=== PATIENT | male | born 1970 | race Caucasian/White ===

== ENCOUNTER → 2020-01-07 15:17 | Outpatient (CLI) | payer OTHER, SELFPAY ==
[2020-01-08 09:00] LABS: COVID19 Sendout Not Detected (Not Detect)
== END ==
PROVIDERS: Family Provider Family Medicine; PCP Family Medicine; Visit Provider Physician Assistant
DX: Z01.812 Encounter for preprocedural laboratory examination (principal)
CPT/HCPCS: 87635

== ENCOUNTER 2020-01-10 08:54 | Inpatient (IN) | payer OTHER, SELFPAY ==
[2020-01-05 13:45] VITALS: BMI 37.3
[2020-01-10] VITALS (16 sets, daily range): BP systolic 119–166; BP diastolic 58–88; PULSE 75–106; RESP 9–19; TEMP 35.7–37.5; O2SAT 88–100; BMI 36.9
--- NOTE | 2020-01-10 | DI.RAD.S_ITS ---
PROCEDURE: XR LUMBAR SPINE 2-3V INDICATIONS: L4-5 L5-S1 TLIF TECHNIQUE: Two views of the lumbar spine were acquired. COMPARISON: None. FINDINGS: Bones: Normal alignment status post after posterior fusion procedure between L4 and S1, with interbody disc cage prosthesis devices at the 2 intervening levels. Soft tissues: Overlying bowel gas pattern is normal. No suspicious soft tissue calcifications. IMPRESSION: Normal alignment is stab wished after posterior fusion and interbody disc prosthesis placement, L4 through S1. Dictated by: Malachi Scales M.D. on 01/10/2020 at 16:08 Approved by: Malachi Scales M.D. on 01/10/2020 at 16:10
[2020-01-10] MEDS: LACTATED RINGERS 1,000 ML 42 ML IV ×3 (09:25→14:20)
--- NOTE | 2020-01-10 10:29 | PM.PREOP ---
Pre-operative Note COVID-19 COVID-19 status: Negative Result date/Date tested (Pos, Neg/Pending): 01/08/20 Interval Note History & Physical reviewed/Exam performed by Physician: Yes Changes to H&P: No
[2020-01-10] MEDS: CEFAZOLIN 2 GM/100 ML FROZ.PIGGY IV ×2 (10:59→18:41)
--- NOTE | 2020-01-10 11:34 | SUR.OPER ---
Prone on spine table, head in foam head support, padded chest and pelvic supports, gel pad at knees, lower legs supported by pillows; nipples, genitalia and toes free of pressure, arms secured on foam padded arm boards at <90 degrees abduction. Tape over blanket at thigh secured to table.
[2020-01-10] MEDS: BUPIVACAINE 0.25% W/ EPI 30 ML VIAL INJ (11:42)
[2020-01-10] MEDS: BUPIVACAINE LIPOSOME 266 MG/20 ML VIAL INJ (11:43)
--- NOTE | 2020-01-10 15:18 | P.OP_ITS ---
Operative Date/Time/Diagnoses Date of procedure: 01/10/20 Time of procedure: 11:36 Pre-op diagnosis: 1. L4-5, L5-S1 spondylolisthesis 2. L4-5, L5-S1 spinal stenosis with radiculopathy 3. L4-5, L5-S1 spondylosis with radiculopathy Post-op diagnosis: same Procedure & Clinicians Procedure: 1. L4-5, L5-S1 Postero-lateral and posterior interbody fusion 2. L4-5, L5-S1 interbody cage placement. 3. L4-5, L5-S1 decompressive laminectomy with bilateral facetecomies 4. L4-5, L5-S1 Posterior segmental instrumentation 5. [place] of bone marrow from iliac crest 6. Utilization of microsurgical technique and operating microscope Same procedure as scheduled: Yes Indications: Patient has been having chronic back pain and worsening lumbar radiculopathy. Patient failed multiple conservative management with worsening pain weakness and numbness in her lower extremity. Patient has been having difficulty performing activity of daily living. After discussing risks benefits of treatment options, patient elected proceed with surgery. Surgeon: Anabell Nix Shift Superintendent Caustic Cresylate: Yahir Zuniga Click Yes if Unassisted: No Anesthesia Type: General Operative Notes Closure Type: primary Specimen(s): none sent Prosthetic devices, grafts, tissues, transplants, or devices: Globus revolve screws, Rise cages Applied: catheter Estimated Blood Loss (mL): 600 Blood products transfused: none Procedure in detail: Patient was seen in the preoperative area. Risks and benefits of the surgery was discussed with the patient. Informed consent was obtained from the patient and placed in the chart. Surgical site was marked. Patient was taken to the operative room. General anesthesia was administered. Prophylactic antibiotic was given to the patient less than 30 min before the incision was made. Patient was placed into a prone position on the Wilder table. Patient's back was then prepped and draped in the sterile fashion. Time- out was performed at this time. Using AP and lateral C-arm imaging the interval between L4-S1 was identified and marked on patient's back. A 2 inch incision 2 in from midline was made on the left side first. The fascia was incised in line with skin incision. Globus MARS retractors was placed inside the incision and docked onto the L4 and L5 lamina. Using microsurgical technique and operating microscope, a L4 and L5 laminectomy and L4-5 L5-S1 facetectomy was performed using a Kerrison rongeur. Patient was found have severe neuroforaminal stenosis L4-5 L5-S1 level with significant exiting nerve compression. During the process of decompression more than 75% of bilateral L4-5 L5-S1 facets were removed in order to decompress the spinal canal and the lateral recess. The L4-5 L5-S1 level was grossly unstable after the decompression was completed and requiring the fusion procedure. The disc space at L4-5, L5-S1 was identified. And a total diskectomy was performed at L4-5, L5- S1 level. The endplates were decorticated using a rasp and shaver. The total diskectomy and decortication was performed at L4-5, L5-S1 level in order to to accomplish a L4-5, L5-S1 fusion. The local bone from the laminectomy and facetectomy was saved for local bone grafting. After the total diskectomy and decortication was completed, Trifecta bone graft material was combined with local bone that was harvested earlier. At this time, a separate skin is incision was made over the iliac crest. A Jamshidi needle was inserted into the iliac crest through a separate skin incision. 5 cc of bone marrow aspiration was obtained through the separate skin incision using a Jamshidi needle from the iliac crest. The bone marrow aspiration was combined with local bone and the Trifecta bone grafting material. The bone grafting material was placed into the L4-5, L5-S1 interbody space along with two cages, one expandable cage at each level. The cages were expanded to their maximum height using the torque limiting screwdriver. At this time a mirror image incision was made on the right side. The fascia was incised in line with the skin incision. Globus MARS retractor was inserted and docked onto the L4-5, L5-S1 posterolateral gutter. Using the power drill, posterior-lateral decortication was performed at L4-5, L5-S1 level until bleeding cortical bone was identified. The remaining bone grafting material was placed into the L4-5 L5-S1 posterior lateral gutter he order to accomplish posterolateral fusion at the L4-5 L5-S1 levels. Using the double C-arm technique, pedicle screws were placed into the L4, L5, S1 pedicles bilaterally. This was done by placing the Jamshidi needle into the pedicles, then placing the guidewires over the Jamshidi needle, and finally placing the cannulated screws over the guidewires bilaterally. After the pedicle screws were placed, 2 titanium rods was locked into the heads of the pedicle screws using locking caps and torque limiting screwdriver. Total 6 pedicles screws were placed. After all the hardware was placed, and confirmed with AP and lateral C-arm imaging, the wound was then irrigated with sterile normal saline and packed with Ray-Ashley gauze for 3 min to accomplish hemostasis. After the gauze was removed the deep fascia was closed with #1 Vicryl suture. The subcutaneous layer was closed with 2-0 Vicryl. The skin was closed with skin suhail. A Hemovac drain was placed in the left-sided incision deep to the fascia. The drain was sewn in using 3-0 nylon suture. Patient tolerated the procedure well. There were no complications. Complications: none Post-operative Condition: stable Disposition: PACU Plan for aftercare: Admit to inpatient hospital
[2020-01-10] MEDS: HYDROMORPHONE 2 MG INJ IV ×4 (15:32→15:52)
[2020-01-10] MEDS: LORazepam 2 MG/ML INJ 0.5 MG IV ×2 (15:32→16:07)
[2020-01-10] MEDS: hydrOXYzine 50 MG/ML INJ IM (15:33)
[2020-01-10] MEDS: OXYCODONE/ACETAMINOPHEN 5/325 TABLET 1 TAB PO (15:47)
--- NOTE | 2020-01-10 16:22 | SUR.PHASEI ---
Report called to Chris
--- NOTE | 2020-01-10 16:42 | SUR.PHASEI ---
Patient transferred to the floor. Report given to Chris. VS stable. IV saline locked. Dressing checked with RN. Zamudio and HV patent. Belongings bag, blue bag and CPAP with patient. SO present.
[2020-01-10] MEDS: SODIUM CHLORIDE 0.9% 1,000 ML 100 ML IV (16:50)
[2020-01-10] MEDS: OXYCODONE IR 10 MG TABLET PO ×3 (16:53→22:27)
[2020-01-10] MEDS: hydrOXYzine pamoate 25 MG CAPSULE PO ×2 (16:54→22:27)
[2020-01-10] MEDS: HYDROMORPHONE 0.5 MG INJ IV ×3 (18:07→22:27)
[2020-01-10] MEDS: DOCUSATE 100 MG CAPSULE PO (19:46)
[2020-01-10] MEDS: SENNOSIDES 8.6 MG TABLET 17.2 MG PO (19:46)
[2020-01-11] MEDS: HYDROMORPHONE 0.5 MG INJ IV ×3 (00:28→06:15)
[2020-01-11] MEDS: OXYCODONE IR 10 MG TABLET PO ×2 (01:27→04:52)
[2020-01-11] MEDS: hydrOXYzine pamoate 25 MG CAPSULE PO ×6 (02:29→23:54)
[2020-01-11] MEDS: CEFAZOLIN 2 GM/100 ML FROZ.PIGGY IV (02:32)
[2020-01-11 04:58] VITALS: BP 132/68; PULSE 82; RESP 20; TEMP 37.1; O2SAT 98
[2020-01-11 05:40] LABS: Hematocrit 49.5 % (41-53); Hemoglobin 16.5 g/dL (13.5-17.5)
[2020-01-11] MEDS: SODIUM CHLORIDE 0.9% FLUSH 10 ML IV ×3 (06:28→20:52)
--- NOTE | 2020-01-11 06:44 | PC.NURSE ---
Pain level constant @ 7-8. Medicated with 10 mg. of Oxycodone, 0.5 mg. of Dilaudid IVP & 25 mg. Of PO Vistaril. Upon re-assessment pain level is only down to 6/10. Will report to day RN.
--- NOTE | 2020-01-11 07:33 | P.PN_ITS ---
Subjective Subjective Date Patient Seen: 01/11/20 Time Patient Seen: 07:33 Interval history: POD #1 s/p L4-S1 TLIF with Dr. Nix. Patient had severe pain overnight. Drain in place 100 cc last night, and 25 cc this AM. No previous issues taking steroids in the past. Pain is all in the back. Exam Vital Signs (past 8 hours): - 01/10/20 23:34 01/11/20 04:58 Temperature 99.5 F 98.7 F Pulse Rate 106 H 82 Respiratory Rate 16 20 Blood Pressure 132/69 132/68 Pulse Oximetry 97 98 Fraction of Inspired Oxygen 21 Oxygen Delivery Method CPAP Oxygen Flow Rate 0 Narrative Exam Narrative: Patient lying in bed, looking very uncomfortable. He is alert and oriented x3. Dressing CDI. Hemovac in place and functioning. Bilateral anterior thigh numbness. Calves are soft, compressible, nontender bilaterally. Pulses are symmetrical. He is able actively dorsiflex plantar flex. Zamudio still in place. Objective Labs Result Diagrams: 01/11/20 05:02 Labs: Laboratory Results - last 24 hr 01/11/20 05:02 Hgb 16.5 Hct 49.5 Assessment & Plan Post-op Postoperative Procedures: Procedures Operation Date: 01/10/20 10:45 Actual Procedures Side Surgeon p L4-5, L5-S1 TLIF with posterior instrumentation Anabell Nix MD Will add Decadron 10 mg IV now, and 4 mg every 6 hours. Valium 5 mg every 4 geri rs as needed. Changed to Dilaudid 4-6 mg every 3 hours p.r. an. And OxyContin 10 mg b.i.d. scheduled. Leave Zamudio in place until mobilizing more. Continue mobilize with physical therapy today. Leave drain in place until less than 15 cc per shift. Patient will DC once mobilizing safely with adequate pain control.
[2020-01-11] MEDS: HYDROMORPHONE 4 MG TABLET PO ×3 (08:03→13:06)
[2020-01-11] MEDS: OXYCODONE ER 10 MG TAB PO ×2 (08:06→20:58)
[2020-01-11] MEDS: DOCUSATE 100 MG CAPSULE PO ×2 (08:07→20:58)
[2020-01-11] MEDS: DEXAMETHASONE 10 MG/ML VIAL IV (08:08)
[2020-01-11] MEDS: lisinopriL 20 MG TABLET 40 MG PO (08:08)
[2020-01-11 08:20] VITALS: BP 136/79; PULSE 82; RESP 16; TEMP 37; O2SAT 99
--- NOTE | 2020-01-11 09:01 | CM.DANOTE ---
DCP: Case received, EMR reviewed and met with patient. Introduced self and role. Was able to meet with patient and obtain information regarding his baseline activity level prior to his surgery. DCP assessment completed with information currently available. Patient is a 49 year old male who admitted yesterday morning to the care of the orthopedic team. PCP: Dr. Iverson. Payer: confirmed: Karla HASTINGS/[employer]. Patient came to the hospital for a surgical procedure. He had L4-5, L5-S1 postero-lateral interbody fusion. Patient has had history of low back pain secondary to spinal stenosis and osteoarthritis. Met with patient in his room. He was sitting up in bed, alert and oriented. He is independent at baseline. He resides in [facility] with his spouse, Lenora. He is currently employed at [employer] in [place]. He drives, and uses no DME at baseline. P: DCP to continue to follow for any needs. He has not yet worked with P.T. He should be able to go home when he is medically stable. Valeria Ellington RN/Pipe Organ Tuner And Repairer
--- NOTE | 2020-01-11 10:30 | OT.IP.EVAL ---
Current Diagnoses Spondylolisthesis, lumbar region (01/11/20) Other spondylosis with radiculopathy, lumbosacral region (01/11/20) Spinal stenosis, lumbar region without neurogenic claudication (01/11/20) Surgery Performed Operation Date: 01/10/20 10:45 Actual Procedures p L4-5, L5-S1 TLIF with posterior instrumentation - Anabell Nix MD Past Medical History (Last Updated 01/05/20 @ 14:17 by Elisha Diaz RN) Arthritis (Acute) HTN (hypertension) (Acute) FELICITA on CPAP (Acute) Sciatica (Acute) Surgical History (Last Updated 01/05/20 @ 14:17 by Elisha Diaz RN) History of carpal tunnel release of both wrists (Acute 2018) S/P cervical spinal fusion (Acute 2009) Occupational Therapy Inpatient Evaluation/Re-Eval M1 PT/OT-IP Prior Functional Status Start: 01/11/20 12:10 Freq: NEEDED Status: Active Protocol: Document 01/11/20 10:30 [facility] (Rec: 01/11/20 12:29 [facility] [id number]) Medical Review Prior Functional Status Medical History Reviewed Yes Communication WNL. Pt is an effective verbal communicator. Mobility and Gait Independent with a limit of 1- 2 blocks due to pain. Pt is active and enjoys lifting weights. Activities of Daily Living and IADL's Independent. 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 He lives with his , Lenora, who works full-time at her home office. She will be home and available as needed when pt discharges. Pt also has 2 yo and 5 yo sons at home. M2 OT-IP Current Condition Start: 01/11/20 12:10 Freq: Status: Active Protocol: Document 01/11/20 10:30 [facility] (Rec: 01/11/20 12:29 [facility] [id number]) Occupational Therapy Current Condition Current Condition Evaluation Date 01/11/20 Treatment Diagnosis Spinal stenosis, S/P L4-5 , L5 -S1 TLIF with posterior instr Post Operative Precautions Lumbar Precautions Log Roll,No Twisting,Limit Bending,Lifting Restriction of 10 lbs,Gait Belt above Incisional Area Weight Bearing Status Weight Bearing Status Weight Bear as Tolerated M3 OT- IP Subjective and Pain Start: 01/11/20 12:10 Freq: Status: Active Protocol: Document 01/11/20 10:30 [id number]- Subjective Occupational Therapy Visit Type Type Initial Evaluation Visit Start Time 10:06 Visit Stop Time 10:30 Total Visit Minutes 24 Occupational Therapy Visit Comments Patient Comments Pt agreed to get up for OT eval. Patient/Caregiver Goals TO go home. OT Pain Assessment Pain When Pain Assessed At Rest Pain Present Pain Present Pain Reported Location low back Intensity 10 Scale Used Numeric (0 - 10) M4 OT- IP ADL's Start: 01/11/20 12:10 Freq: Status: Active Protocol: Document 01/11/20 10:30 [facility]11/20 [id number] BWB-Bmsi-Msjhmhd General Evaluation Self-Feeding Ability Independent OT ADL-Grooming General Evaluation Grooming Ability Standby Assistance Areas Needing Assistance Retrieving/Set-up of Grooming Items Comments OT Grooming Comments Educated on back precautions for grooming needs to lean at hips or spit into a cup. OT ADL-Oral Care General Eval Oral Care Ability Independent OT ADL-Dressing General Eval Lower Body Dressing Ability Maximum Assistance Comments OT Dressing Comments Educated pt on LB dressing equipment of sock aid and club car attendant and pt able to do with SBA after initial education. OT ADL-Toileting General Evaluation Toileting Ability Total Assistance Comments OT Toileting Comments Zamudio in. Educated that easier to stand to wipe or able to lean to one side to wipe in order to follow appropriate back precautions. In addition, wet wipe can also be helpful. OT ADL-Bathing Comments OT Bathing Comments Not at this time. Pt may benefit from a shower chair for his tub/shower. M5 OT- IP IADL's Start: 01/11/20 12:10 Freq: Status: Active Protocol: Document 01/11/20 10:30 [facility] (Rec: 01/11/20 12:29 [facility] [id number]) OT-Instrumental Activities of Daily Living Home Safety Awareness Awareness of Need for Assistance at Home Good Awareness Ability to Problem Solve Emergency Able to Problem Solve Situations Medication Management Medication Management Comments Pt aware that he is not thinking clearly due to pain medications and to have assist with needs. Money Management Money Management Comments to assist as needed. Meal Preparation Meal Preparation Comments to assist for needs. Television Analyzer Television Analyzer Comments to assist. M6 OT- IP Functional Cognition Start: 01/11/20 12:10 Freq: Status: Active Protocol: Document 01/11/20 10:30 [facility] (Rec: 01/11/20 12:29 [facility] [id number]) Cognitive Factors Limiting Selfcare Function Cognitive Ability Level of Alertness Alert Patient Orientation Name,Age,Birthday,Month,Date, Year,Day of Week,Place, Situation Attention Span Ability Capable of Focused Attention, Capable of Sustained Attention Ability to Follow Commands Able to Follow One Step Commands Memory Description No Deficits Noted Safety Awareness Decreased Ability to Apply Precautions Cognitive Comments Cognitive Assessment Comments Pt a bit groogy and not thinking well and needing concrete commands. Educated pt to incorporate back precautions for needs. Pt aware to use call light to call for assist when needed. OT- Vision and Hearing OT- Hearing Assessment OT- Hearing Assessment WFL OT- Vision Assessment Visual Acuity WFL M7 OT- IP Mobility and Balance Start: 01/11/20 12:10 Freq: Status: Active Protocol: Document 01/11/20 10:30 [facility] (Rec: 01/11/20 12:29 [facility] [id number]) OT-Transfer Assessment Sit to and From Stand Sit to and from Stand Standby Assistance Transfers Transfer Ability Contact Guard Assistance Technique Transfer Destination Chair Comments Mobility Comments Pt already sitting up in the recliner and not wanting to get back to the bed at this time. Pt needing cues to hinge at the hips while coming to sit versus just lowering himself with his arms on the armrest to the recliner. OT- Gait Assessment Comments Gait Ability Comments SBA with FWW VC to keep FWW in front of him at all times. OT- Balance Assessment Sitting Balance and Reactions Static Sitting Balance Ability Normal Dynamic Sitting Balance Ability Good Standing Balance and Reactions Static Standing Balance Ability Good Dynamic Standing Balance Ability Fair M8 OT- IP Objective Assessments Start: 01/11/20 12:10 Freq: Status: Active Protocol: Document 01/11/20 10:30 [facility] (Rec: 01/11/20 12:29 [facility] [id number]) OT Gross Range of Motion Upper Extremity Range of Motion Assessment Within Functional Limits OT Strength Upper Extremity Strength Assessment Within Functional Limits OT-Muscle Tone Assessment Muscle Tone WNL Yes M9 OT- IP Assessment and Plan Start: 01/11/20 12:10 Freq: Status: Active Protocol: Document 01/11/20 10:30 [facility] (Rec: 01/11/20 12:29 [facility] [id number]) OT Summary Assessment and Plan Potential Rehabilitation Potential Good Analytic Complexity at Evaluation Low Summary OT Impairments Pain,Functional Mobility, Dressing,Toileting,Bathing, Toilet Transfers,Shower Transfers,Activity Tolerance Progress Towards Goals Slow Progress due to Pain Assessment Summary Pt main barrier are pain and feeling a little groogy and not thinking well due to pain medications. Pt aware that he may benefit from a shower chair and lower body dressing equipment but wanting to hold off until he pain is better. To continue to educate pt for back precautions and for equipment needs. Goals Grooming Goal Independent Dressing Goal Independent Toileting Goal Independent Bathing Goal Independent Toilet Transfer Goal Independent Shower Transfer Goal Independent Patient/Caregiver Education Goal Demonstrate Post-Op Precautions,Caregiver Independent Assisting Patient Days to Meet Goals 3 Frequency of Treatment Frequency Of Treatment Once a Day Treatment Plan OT Treatment Plan ADL Training,Functional Mobility,Patient/Family Education,Discharge Planning Other Treatment Recommendations and Next Shower Treatment Focus Discharge Recommendations OT Discharge Recommendations Home with Assistance Home Equipment Needs Shower chair Transportation Needs at Discharge Private Vehicle
--- NOTE | 2020-01-11 10:39 | PT.IIE ---
Current Diagnoses Spondylolisthesis, lumbar region (01/10/20) Other spondylosis with radiculopathy, lumbosacral region (01/10/20) Spinal stenosis, lumbar region without neurogenic claudication (01/10/20) Surgery Performed Operation Date: 01/10/20 10:45 Actual Procedures p L4-5, L5-S1 TLIF with posterior instrumentation - Anabell Nix MD Surgical History (Last Updated 01/05/20 @ 14:17 by Elisha Diaz RN) History of carpal tunnel release of both wrists (Acute 2018) S/P cervical spinal fusion (Acute 2009) Medical History (Last Updated 01/05/20 @ 14:17 by Elisha Diaz RN) Arthritis (Acute) HTN (hypertension) (Acute) FELICITA on CPAP (Acute) Sciatica (Acute) Physical Therapy Inpatient Evaluation/Re-Eval M1 PT/OT-IP Prior Functional Status Start: 01/11/20 08:42 Freq: NEEDED Status: Active Protocol: Document 01/11/20 10:17 AW (Rec: 01/11/20 10:39 AW [id number]) Medical Review Prior Functional Status Medical History Reviewed Yes Communication WNL. Pt is an effective verbal communicator. Mobility and Gait Independent with a limit of 1- 2 blocks due to pain. Pt is active and enjoys lifting weights. Activities of Daily Living and IADL's Independent. 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 He lives with his , Lenora, who works full-time at her home office. She will be home and available as needed when pt discharges. Pt also has 2 yo and 5 yo sons at home. M2 PT-IP Current Condition Start: 01/11/20 08:42 Freq: NEEDED Status: Active Protocol: Document 01/11/20 10:17 AW (Rec: 01/11/20 10:39 AW [id number]) Physical Therapy Current Condition Current Condition Evaluation Date 01/11/20 Treatment Diagnosis s/p L4-5 L5-S1 TLIF; impaired mobility; difficulty in walking Onset Date 01/10/20 Precautions Lumbar Precautions Log Roll,No Twisting,Limit Bending,Lifting Restriction of 10 lbs,Gait Belt above Incisional Area M3 PT-IP Subjective Start: 01/11/20 08:42 Freq: NEEDED Status: Active Protocol: Document 01/11/20 10:17 AW (Rec: 01/11/20 10:39 AW [id number]) Subjective Physical Therapy Visit Type Type Initial Evaluation Visit Start Time 09:23 Visit Stop Time 09:48 Total Visit Minutes 25 Number of HOUSING DIRECTOR Visits 0 Physical Therapy Visit Comments Patient Comments Pt has had difficulty with pain control but is willing to particpate with PT Therapy Pain Assessment Pain When Pain Assessed At Rest Pain Present Pain Present Pain Reported Location low back Intensity 8 Scale Used 8/10 at rest; 10/10 during transfers Pain Behaviors Calling Out,Facial Grimacing, Guarding,Wincing Pain Management Techniques Apply Cold,Re-positioning, Timing of Activity with Medications M4 PT-IP Mobility and Gait Start: 01/11/20 08:42 Freq: NEEDED Status: Active Protocol: Document 01/11/20 10:17 AW (Rec: 01/11/20 10:39 AW [id number]) PT-Bed Mobility Assessment Rolling Type of Rolling Log Rolling,Roll to Left Level of Assist Moderate Assistance,1 Person Assistance Supine to Sit Supine to Sit Moderate Assistance,1 Person Assistance Scooting Scooting to Edge of Bed Standby Assistance PT-Transfer Assessment Sit to and From Stand Sit to and from Stand Minimal Assistance,1 Person Assistance,Use of Upper Extremities Equipment Transfer Assistive Device Gait Belt,Front Wheeled Walker Orthotic/Prosthetic Devices or Brace: No Transfers Transfer Destination Chair Transfer Technique pt ambulated with FWW Transfer Ability Level of Assist Contact Guard Assistance,1 Person Assistance,Use of Upper Extremities Comments Mobility Comments Pt was sitting up in bed as PT arrived. With bed flat, pt required mod A x 1 to log roll to his left side (as he does at home). Max cues and mod A x 1 for sidelying to sit transition. Pt was then able to sit EOB with UE support to relieve pressure on low back. Pt stood min A x 1 using FWW and transferred to the chair with stand step pivot CGA. Pt then agreed to ambulate, so stood using FWW min A x 1 and ambulated in the buenrostro for a total of 100' CGA. He did not need a rest break and commented that he felt somewhat better on his feet. On return to the room, pt returned to the chair CGA. Pt was positioned on the chair with call light and all needs within reach. AIRCRAFT ASSEMBLER notified that a chair alarm was warranted. Gait Assessment Gait Gait Assistance Required: Contact Guard Assist Distance (Feet) 100 Assistive Devices Assistive Device Gait Belt,Front Wheeled Walker Gait Deviations General Gait Pattern Antalgic,Decreased Stride Length,Decreased Feet Clearance,Flexed Trunk Factors Limiting Gait Function Factors Limiting Gait Function Decreased Activity Tolerance, Decreased Sensation,Decreased Strength,Difficulty Following Directions,Limited Range of Motion,Pain,Poor Balance,Poor Safety Awareness Comments Gait Comments Pt required CGA for ambulation with FWW. He did pay good attention to spinal precautions and was not observed to bend or twist while walking. Stair Climbing Assessment Comments Stair Climbing Comments Not assessed. PT-Balance Assessment Sitting Balance and Reactions Static Sitting Balance Ability Normal Dynamic Sitting Balance Ability Normal Standing Balance and Reactions Static Standing Balance Ability Good Dynamic Standing Balance Ability Good Device Used FWW Balance Tests Single Limb Standing 10 sec each leg M5 PT-IP Objective Assessments Start: 01/11/20 08:42 Freq: NEEDED Status: Active Protocol: Document 01/11/20 10:17 AW (Rec: 01/11/20 10:39 AW [id number]) Orientation Orientation/Cognition Level of Alertness Alert Orientation Name,Day of Week,Place, Situation Language Function Ability No Deficits Noted Safety Awareness Decreased Safety Awareness Memory Description No Deficits Noted Gross Range of Motion Upper Extremity ROM Assessment Within Functional Limits Lower Extremity ROM Assessment Within Functional Limits Strength Upper Extremity Strength Assessment Within Functional Limits Lower Extremity Strength Assessment Within Functional Limits Comments Strength Comments BLE grossly 5/5 Coordination Assessment Gross Coordination Gross Coordination WNL Sensation Assessment Sensation Gross Sensation Right LE Impaired,Left LE Impaired Light Touch Impaired Sensation Description Numbness Comments Sensation Comments Numbness reported B anterolateral thighs. Muscle Tone Muscle Tone WNL Yes M6 PT-IP Treatment Start: 01/11/20 08:42 Freq: NEEDED Status: Active Protocol: Document 01/11/20 10:17 AW (Rec: 01/11/20 10:39 AW [id number]) Physical Therapy Treatment Education Education Provided Precautions,Weight Bearing Status,Post-Op Packet,Safety Other Treatments Other Treatment Performed Provided education on role of PT, plan of care, post-op spinal precautions, and safe use of FWW. M7 PT-IP Assessment and Plan Start: 01/11/20 08:42 Freq: NEEDED Status: Active Protocol: Document 01/11/20 10:17 AW (Rec: 01/11/20 10:39 AW [id number]) PT Summary Assessment and Plan Potential Rehabilitation Potential Good Status of Condition at Evaluation Evolving Summary Impairments Pain,ROM,Strength,Balance, Sensation,Bed Mobility, Transfers,Gait,Activity Tolerance Assessment Summary Clint is a 49 yo man seen for PT evaluation on POD1 following L4-5 L5S1 TLIF. At baseline, he is indpendent with ambulation up to 1-2 blocks with back and leg pain limiting his capacity. He is independent with all ADL's. On evaluation, pt required mod assist of one for bed mobililty, min assist for sit to stand, and CGA for transfers and gait with FWW. Continued acute PT is indicated for improved independence with mobility and to review/reinforce spinal precautions. PT anticipates this pt will be safe for discharge with family assist once medically cleared. Goals Bed Mobility Goal Standby Assistance Transfer Goal Standby Assistance,Front Wheeled Walker Gait Goal Standby Assistance,Front Wheel Walker Gait Distance 200 Other Goals - up/down 2 steps with L rail ascending SBA - pt will verbally teach back all spinal precautions Days to Meet Goals 2 Frequency of Treatment Frequency Of Treatment Twice a Day Treatment Plan Physical Therapy Treatment Plan Bed Mobility Training,Transfer Training,Gait Training, Therapeutic Exercise,Balance Retraining,Post Op Education, Discharge Planning,Hot or Cold Pack,Neuromuscular Re-ed Other Recommendations and Next Treatment review precautions, bed Focus mobility, progress gait distance with FWW; assess safety on stairs if pain better controlled Recommendations To Nursing Amount of Assist Needed 1 Person Assist Discharge Recommendations PT Discharge Recommendations Home with Assistance, Outpatient PT Transportation Needs at Discharge Private Vehicle
[2020-01-11 11:06] VITALS: BP 124/66; PULSE 77; RESP 16; TEMP 37.1; O2SAT 98
[2020-01-11] MEDS: ACETAMINOPHEN 325 MG TABLET 650 MG PO (12:38)
[2020-01-11] MEDS: dexAMETHasone 4 MG TABLET PO ×3 (13:01→23:51)
[2020-01-11] MEDS: diazePAM 2 MG TABLET 5 MG PO ×3 (13:30→23:53)
[2020-01-11] MEDS: HYDROMORPHONE 2 MG TABLET 6 MG PO ×4 (13:40→22:39)
--- NOTE | 2020-01-11 15:00 | PT-IP ANOTE ---
Pt refusal of therapy due to high pain level and states is finally able to rest.
--- NOTE | 2020-01-11 15:02 | PT-IP ANOTE ---
Pt refused PT due to high level of pain and stated he is now resting, present. Will check back with pt in the morning.
[2020-01-11 15:08] VITALS: BP 105/52; PULSE 72; RESP 18; TEMP 36.4; O2SAT 97
[2020-01-11] MEDS: MAGNESIUM HYDROXIDE 30 ML UDC PO (16:53)
[2020-01-11 20:23] VITALS: BP 128/52; PULSE 82; RESP 20; TEMP 36.8; O2SAT 96
[2020-01-11] MEDS: SENNOSIDES 8.6 MG TABLET 17.2 MG PO (20:58)
[2020-01-11 21:15] VITALS: BP 127/70; PULSE 75; RESP 18; TEMP 36.9; O2SAT 96
[2020-01-12] VITALS (7 sets, daily range): BP systolic 118–141; BP diastolic 50–93; PULSE 54–101; RESP 16–20; TEMP 36.2–37.5; O2SAT 92–100
[2020-01-12] MEDS: HYDROMORPHONE 2 MG TABLET 6 MG PO ×7 (01:36→23:27)
--- NOTE | 2020-01-12 02:32 | PC.NURSE ---
Addendum entered by Vianey Go R.N. 01/12/20 04:40: Medicated with po Dilaudid + Valium + Vistaril as per patient request for complaint of 6/10 pain. Agreeable to having ice pack applied. Original Note: Patient seen and assessed at 0007. Is alert and oriented. Breath sounds CTA with RA sat of 99%. HRR. Denies nausea. BT present and is passing flatus. Indwelling catheter is patent; urine is clear, griselda. Is able to move himself in bed although has significant back pain with movement. Stated pain was 5/10 at that time and was medicated with Valium + Vistaril. Dressing to back is CDI; hemovac intact and compressed. Gait not assessed but patient states he is able to get up with walker and 1 assist. Does state lateral quadriceps bilaterally have some numbness, otherwise CMS is intact. Refusing SCD's so educated on DVT prevention and patient verbalizes understanding. Fall risk score is moderate and bed alarm is activated. Requesting to be awakened for po Dilaudid when due at 0130 which was done and patient stating pain is being much better controlled at this time.
[2020-01-12] MEDS: hydrOXYzine pamoate 25 MG CAPSULE PO ×4 (04:37→22:10)
[2020-01-12] MEDS: diazePAM 2 MG TABLET 5 MG PO ×4 (04:37→22:10)
[2020-01-12] MEDS: dexAMETHasone 4 MG TABLET PO (05:40)
--- NOTE | 2020-01-12 08:45 | PM.PN.1 ---
Exam Vital Signs (past 8 hours): - 01/12/20 04:46 01/12/20 08:00 Temperature 98.2 F 97.1 F L Pulse Rate 65 54 L Respiratory Rate 18 16 Blood Pressure 133/59 L 131/70 Pulse Oximetry 95 98 Fraction of Inspired Oxygen 21 Oxygen Delivery Method Room Air Oxygen Flow Rate 0 Objective Labs Result Diagrams: 01/11/20 05:02 Assessment & Plan Assessment & Plan narrative: POD#2 s/p L4-S1 TLIF Pain better controllled today On exam dressing clean and dry Neuro vascularly intact on exam no s/s of DVT
[2020-01-12] MEDS: DOCUSATE 100 MG CAPSULE PO ×2 (09:18→20:04)
[2020-01-12] MEDS: OXYCODONE ER 10 MG TAB PO ×2 (09:18→20:04)
[2020-01-12] MEDS: lisinopriL 20 MG TABLET 40 MG PO (09:18)
[2020-01-12] MEDS: SODIUM CHLORIDE 0.9% FLUSH 10 ML IV ×2 (09:19→22:16)
[2020-01-12] MEDS: MAGNESIUM HYDROXIDE 30 ML UDC PO (09:28)
--- NOTE | 2020-01-12 11:03 | PT.IPTN ---
Current Diagnoses Spondylolisthesis, lumbar region (01/11/20) Other spondylosis with radiculopathy, lumbosacral region (01/11/20) Spinal stenosis, lumbar region without neurogenic claudication (01/11/20) Surgery Performed Operation Date: 01/10/20 10:45 Actual Procedures p L4-5, L5-S1 TLIF with posterior instrumentation - Anabell Nix MD Physical Therapy Treatment Note M2 PT-IP Current Condition Start: 01/11/20 08:42 Freq: NEEDED Status: Active Protocol: Document 01/11/20 10:17 AW (Rec: 01/11/20 10:39 AW [id number]) Physical Therapy Current Condition Current Condition Evaluation Date 01/11/20 Treatment Diagnosis s/p L4-5 L5-S1 TLIF; impaired mobility; difficulty in walking Onset Date 01/10/20 Precautions Lumbar Precautions Log Roll,No Twisting,Limit Bending,Lifting Restriction of 10 lbs,Gait Belt above Incisional Area M3 PT-IP Subjective Start: 01/11/20 08:42 Freq: NEEDED Status: Active Protocol: Document 01/12/20 10:27 SP (Rec: 01/12/20 14:13 SP [id number]) Subjective Physical Therapy Visit Type Type Treatment Note Visit Start Time 10:27 Visit Stop Time 11:03 Total Visit Minutes 36 Notes in room completed caregiver training and provided support needed throughout the tx. RETORT FURNACE OPERATOR student present provided w/c follow during tx. Number of RETORT FURNACE OPERATOR Visits 1 Physical Therapy Visit Comments Patient Comments Pt premedicated 1 hr prior to PT tx. Pt willing to work with therapy when arrived but reported pain still 8-9/10. Patient Goals Return home with to assist when pain is better controlled. Therapy Pain Assessment Pain When Pain Assessed At Rest Pain Present Pain Present Pain Reported Location low back Intensity 7 Scale Used 7/10 at rest , 8-9-/10 during mobility. Pain Behaviors Calling Out,Facial Grimacing, Guarding,Restlessness,Wincing Pain Management Techniques Apply Cold,Re-positioning, Timing of Activity with Medications M4 PT-IP Mobility and Gait Start: 01/11/20 08:42 Freq: NEEDED Status: Active Protocol: Document 01/12/20 10:27 SP (Rec: 01/12/20 14:13 SP [id number]) PT-Bed Mobility Assessment Rolling Type of Rolling Log Rolling,Roll to Left Level of Assist Moderate Assistance,1 Person Assistance Supine to Sit Supine to Sit Maximum Assistance,1 Person Assistance,Bedrails Scooting Scooting to Edge of Bed Standby Assistance PT-Transfer Assessment Sit to and From Stand Sit to and from Stand Contact Guard Assistance, Minimal Assistance,1 Person Assistance,Use of Upper Extremities Equipment Transfer Assistive Device Gait Belt,Front Wheeled Walker Transfers Transfer Destination Chair Transfer Ability Level of Assist Contact Guard Assistance,1 Person Assistance,Use of Upper Extremities Comments Mobility Comments Pt was inclined in bed when arrived. in room, completed caregiver training and support throughout treatment. RETORT FURNACE OPERATOR provided support and demonstration of assist during bed mobility HOB inclined 20 deg log roll to L Mod A, L sidelying to sitting Max A of 1 person with assist to pull from therapist hand and at upper L back to right trunk to sitting. Pt was able to scoot to EOB himself SBA then sit to stand usign FWW and cued for pushing from bed Min A from after donned gait belt to transition to standing required. Pt agreeable, able and wanting to walk down to assess stairs using FWW CGA provided by w/c follow but RETORT FURNACE OPERATOR student, decreased stride and foot clearance little unsteady BLE with BUE heavy WB on FWW, required multiple stop stand rests, declined seated rest of w/c use due to worse pain transitioning positions, complete ascend/descend 3 stairs L HR step to patterning Mod A of 1 person () CGA by RETORT FURNACE OPERATOR then walked back to room total approx 345 ft using FWW CGA w/c follow but not used. Pt agreed to sit upright in chair when returned to room, cued for backing up completely to chair then reach back for slow descent into chair for safety with good hip hinge and staying withing precautions throughout tx. Pillow propping for upright posture in chair with call light and all needs in reach before left, in room. PRODUCTION TROUBLESHOOTER was providing cold pack to his back when left. Pt stated to PRODUCTION TROUBLESHOOTER to notifynurse of dressing change stated would complete when up with PT per discussed. Gait Assessment Gait Gait Assistance Required: Contact Guard Assist,1 Person Assist Distance (Feet) 345 Able to Maintain Weight Bearing Status Yes During Gait Assistive Devices Assistive Device Gait Belt,Front Wheeled Walker Orthotic/Prosthetic Devices or Brace: No Gait Deviations General Gait Pattern Antalgic,Decreased Stride Length,Decreased Feet Clearance,Flexed Trunk,Step-to Gait Factors Limiting Gait Function Factors Limiting Gait Function Decreased Activity Tolerance, Decreased Sensation,Decreased Strength,Difficulty Following Directions,Limited Range of Motion,Pain,Poor Balance,Poor Safety Awareness,Respiratory Distress Comments Gait Comments See mobility comments. Stair Climbing Assessment Evaluation Level of Assist On Stairs Moderate Assistance,1 Person Assistance Devices Stair Climbing Assistive Devices Left Railing Technique/Endurance Stair Climbing Direction Ascend and Descend Stair Climbing Technique Step to Step Number of Steps Climbed 3 Stair Climbing Set # Repetitions (reps) 1 Comments Stair Climbing Comments See mobility comments PT-Balance Assessment Sitting Balance and Reactions Static Sitting Balance Ability Normal Dynamic Sitting Balance Ability Good Standing Balance and Reactions Static Standing Balance Ability Good Dynamic Standing Balance Ability Fair Device Used FWW M5 PT-IP Objective Assessments Start: 01/11/20 08:42 Freq: NEEDED Status: Active Protocol: Document 01/11/20 10:17 AW (Rec: 01/11/20 10:39 AW [id number]) Orientation Orientation/Cognition Level of Alertness Alert Orientation Name,Day of Week,Place, Situation Language Function Ability No Deficits Noted Safety Awareness Decreased Safety Awareness Memory Description No Deficits Noted Gross Range of Motion Upper Extremity ROM Assessment Within Functional Limits Lower Extremity ROM Assessment Within Functional Limits Strength Upper Extremity Strength Assessment Within Functional Limits Lower Extremity Strength Assessment Within Functional Limits Comments Strength Comments BLE grossly 5/5 Coordination Assessment Gross Coordination Gross Coordination WNL Sensation Assessment Sensation Gross Sensation Right LE Impaired,Left LE Impaired Light Touch Impaired Sensation Description Numbness Comments Sensation Comments Numbness reported B anterolateral thighs. Muscle Tone Muscle Tone WNL Yes M6 PT-IP Treatment Start: 01/11/20 08:42 Freq: NEEDED Status: Active Protocol: Document 01/12/20 10:27 SP (Rec: 01/12/20 14:13 SP [id number]) Physical Therapy Treatment Education Education Provided Precautions,Weight Bearing Status,Post-Op Packet,Safety Other Treatments Other Treatment Performed Education post-op spinal precautions, safe use of FWW and hand placement, hip hinge during sit to stand. M7 PT-IP Assessment and Plan Start: 01/11/20 08:42 Freq: NEEDED Status: Active Protocol: Document 01/12/20 10:27 SP (Rec: 01/12/20 14:13 SP [id number]) PT Summary Assessment and Plan Potential Rehabilitation Potential Good Status of Condition at Evaluation Evolving Summary Impairments Pain,ROM,Strength,Balance, Sensation,Bed Mobility, Transfers,Gait,Activity Tolerance Assessment Summary Pt required Mod A for bed mobililty, min assist for sit to stand, and CGA for transfers and gait with FWW, Mod A for stair mgt. Pt continues to have high level pain premedicated during tx, discussed with nurse. Continued acute PT is indicated for improved independence with mobility and to review/reinforce spinal precautions. RETORT FURNACE OPERATOR anticipates this pt will be safe for discharge with family assist once medically cleared. Goals Bed Mobility Goal Standby Assistance Transfer Goal Standby Assistance,Front Wheeled Walker Gait Goal Standby Assistance,Front Wheel Walker Gait Distance 200 Other Goals - up/down 2 steps with L rail ascending SBA - pt will verbally teach back all spinal precautions Days to Meet Goals 2 Frequency of Treatment Frequency Of Treatment Twice a Day Treatment Plan Physical Therapy Treatment Plan Bed Mobility Training,Transfer Training,Gait Training, Therapeutic Exercise,Balance Retraining,Post Op Education, Discharge Planning,Hot or Cold Pack,Neuromuscular Re-ed Other Recommendations and Next Treatment review precautions, bed Focus mobility, progress gait distance with FWW; Recommendations To Nursing Amount of Assist Needed 1 Person Assist Discharge Recommendations PT Discharge Recommendations Home with Assistance, Outpatient PT Transportation Needs at Discharge Private Vehicle
--- NOTE | 2020-01-12 11:08 | OT.IPNOTE ---
Pt states in too much pain today and rather do showering tomorrow for OT. Pt's in the room and to be here tomorrow at 9AM for caregiver training.
--- NOTE | 2020-01-12 14:28 | PC.NURSE ---
Hemovac drain dc'd per order, patient tolerated well. Dressing to back compromised with drain removal, clean coversite dressing replaced and intact. Patient reports voiding without difficulty post cee removal.
--- NOTE | 2020-01-12 15:20 | PT-IP ANOTE ---
Pt refused pm treatment stating I just got back into bed and just want to rest and get some relief from the pain. Will try again in am.
[2020-01-12] MEDS: SENNOSIDES 8.6 MG TABLET 17.2 MG PO (20:04)
--- NOTE | 2020-01-13 01:23 | PC.NURSE ---
Addendum entered by Vianey Go R.N. 01/13/20 05:35: Up to this morning to bathroom and is walking independently in room with walker and is steady on feet. States pain was 7/10 when first getting out of bed and currently is 6/10; medicated with po Dilaudid. Addendum entered by Vianey Go R.N. 01/13/20 02:39: Awakened for pain meds per patient request and he states pain is 5/10 the best it's been since the surgery. Original Note: Patient initially seen and assessed at 2335. Is alert and oriented. Breath sounds CTA with RA sat of 94%. HRR. Denies nausea. BT present and is passing flatus. Has been voiding without dysuria, frequency or urgency following catheter removal yesterday. Is up with walker and SBA. Does have persistent back pain which worsens with movement but states he feels it is being well controlled with currently regimen of Dilaudid q3h and Valium + Vistaril q4h and Oxycodone BID. Dressing to back is intact with some drainage at the lower left corner of dressing; bruising noted around lower back. Wearing bilateral calf SCD's tonight. Fall risk score is moderate; patient calls for assistance appropriately
[2020-01-13] MEDS: HYDROMORPHONE 2 MG TABLET 6 MG PO ×4 (02:35→12:36)
[2020-01-13] MEDS: diazePAM 2 MG TABLET 5 MG PO ×2 (02:35→06:40)
[2020-01-13] MEDS: hydrOXYzine pamoate 25 MG CAPSULE PO ×3 (02:35→11:01)
[2020-01-13 05:00] VITALS: BP 137/79; PULSE 62; RESP 16; TEMP 36.7; O2SAT 95
[2020-01-13 07:00] VITALS: BP 113/60; PULSE 71; RESP 16; TEMP 36.2; O2SAT 96
--- NOTE | 2020-01-13 07:38 | PM.DS.1 ---
History of Present Illness History of Present Illness Date Patient Seen: 01/13/20 Time Patient Seen: 07:38 Chief complaint: *OPB* [id number] Narrative: Patient has been having chronic back pain and worsening lumbar radiculopathy. Patient failed multiple conservative management with worsening pain weakness and numbness in her lower extremity. Patient has been having difficulty performing activity of daily living. After discussing risks benefits of treatment options, patient elected proceed with surgery. Discharge Providers Provider Date of admission: 01/11/20 12:17 Discharge Date: 01/13/20 Primary care physician: Tian vIerson MD Consults: 01/10/20 09:32 Consult to Respiratory Therapy Evaluate & Treat Comment: Physician Instructions: Evaluate and treat 01/10/20 16:39 Consult to Occupational Therapy Evaluate & Treat Comment: Physician Instructions: Evaluate and treat Consult to Physical Therapy Evaluate & Treat Comment: Physician Instructions: Evaluate and Treat Discharge provider: Aranza George PA-C Summary Hospital Course Discharge Diagnosis: s/p TLIF Hospital Course: Patient was admitted for TLIF with Dr. Nix. Patient had significant pain control issues postop day 1 and 2. He was slow to mobilize because of this. He required a Hemovac drain after surgery this was pulled on postop day 2. Zamudio catheter in until postop day 2. He worked with physical therapy throughout his stay and at time of discharge was safe to mobilize at home with a walker. Exam Vital Signs (past 8 hours): - 01/12/20 23:42 01/13/20 05:00 Temperature 98.4 F 98.0 F Pulse Rate 82 62 Respiratory Rate 16 16 Blood Pressure 118/79 137/79 Pulse Oximetry 94 95 Fraction of Inspired Oxygen 21 Oxygen Delivery Method BiPAP Oxygen Flow Rate 0 Narrative Exam Narrative: Patient lying in bed comfortably today. He is able to actively dorsiflex and plantar flex. Numbness of anterior quads is no longer there. Full sensation throughout bilateral lower extremities. Dorsalis pedis pulses symmetrical. Dressing on back is CDI. No complaints this morning. He is ready discharge home. Objective Labs Result Diagrams: 01/11/20 05:02 Discharge Plan Discharge Plan Patient Disposition: Home Discharge orders & Medications Prescriptions: New diazepam 2 mg Tablet 5 mg PO Q4HR PRN (Reason: muscle spasms) Qty: 50 RF: 0 hydromorphone 4 mg Tablet 4 mg PO Q3HR PRN (Reason: Pain, Severe (7-10)) Qty: 60 RF: 0 oxycodone [OxyContin] 10 mg Tablet,Oral Only,Ext.Rel.12 Hr 10 mg PO BID Qty: 40 RF: 0 hydroxyzine pamoate [Vistaril] 25 mg capsule 25 mg PO QID PRN (Reason: muscle spasm) Qty: 60 RF: 0 Continued lisinopril 40 mg Tablet 40 mg PO DAILY RF: 0 Follow up/Referrals: Tian Iverson MD [Primary Care Provider] - Anabell Nix MD [Physician] - Diet/Activity/Treatments Activity: No excessive bending, lifting or twisting Skin/Wound/Dressing Care Report to your healthcare provider any signs of infection, such as:: chills, fever and increased pain Dressing: Leave cover site on until appointment Visit Report/Discharge Packet Instructions: Oxycodone, Diazepam (By mouth) Visit Report Forms: Patient Portal/API, Stroke Signs & Symptoms Discharge Data Primary Care Provider: Tian Iverson Attending Provider: Anabell Nix Admit Date/Time: 01/11/20 12:17
--- NOTE | 2020-01-13 08:46 | CM.DPC ---
DCP: continued: case received, EMR reviewed. DC order is noted: d/c summary remains at this time in draft by LELE Hauser. Plan: noted to be home with support of Lenora. rn interventional nurse notes pt up and independent in his room. Will follow prn. Anticipate home today
--- NOTE | 2020-01-13 09:05 | OT.IP.TRT ---
Current Diagnoses Spondylolisthesis, lumbar region (01/11/20) Other spondylosis with radiculopathy, lumbosacral region (01/11/20) Spinal stenosis, lumbar region without neurogenic claudication (01/11/20) Surgery Performed Operation Date: 01/10/20 10:45 Actual Procedures p L4-5, L5-S1 TLIF with posterior instrumentation - Anabell Nix MD Occupational Therapy Treatment Note M2 OT-IP Current Condition Start: 01/11/20 12:10 Freq: Status: Active Protocol: Document 01/11/20 10:30 [facility] (Rec: 01/11/20 12:29 [facility] [id number]) Occupational Therapy Current Condition Current Condition Evaluation Date 01/11/20 Treatment Diagnosis Spinal stenosis, S/P L4-5 , L5 -S1 TLIF with posterior instr Post Operative Precautions Lumbar Precautions Log Roll,No Twisting,Limit Bending,Lifting Restriction of 10 lbs,Gait Belt above Incisional Area Weight Bearing Status Weight Bearing Status Weight Bear as Tolerated M3 OT- IP Subjective and Pain Start: 01/11/20 12:10 Freq: Status: Active Protocol: Document 01/13/20 09:09 [facility] (Rec: 01/13/20 09:17 [facility] [id number]) OT- Subjective Occupational Therapy Visit Type Type Treatment Note Visit Start Time 09:00 Visit Stop Time 09:08 Total Visit Minutes 8 Occupational Therapy Visit Comments Patient Comments Pt's in the room assisting the pt. Patient/Caregiver Goals To go home. OT Pain Assessment Pain When Pain Assessed During Mobility Pain Present Pain Present Pain Reported M4 OT- IP ADL's Start: 01/11/20 12:10 Freq: Status: Active Protocol: Document 01/13/20 09:09 [facility] (Rec: 01/13/20 09:17 [facility] [id number]) OT ADL-Grooming General Evaluation Areas Needing Assistance Retrieving/Set-up of Grooming Items Comments OT Grooming Comments SBA with FWW OT ADL-Oral Care Comments Oral Care Comments Pt able to appropriately lean to the counter to spit. OT ADL-Dressing Comments OT Dressing Comments At this time pt's spouse states will assist pt for all LB dressing needs and not wanting use of director stage at this time. OT ADL-Bathing Comments OT Bathing Comments Pt able to package dye stand loader the shower per but needing use of grab bars for balance. Pt does not feel that he will need a shower chair and that his will assist for all his needs. M7 OT- IP Mobility and Balance Start: 01/11/20 12:10 Freq: Status: Active Protocol: Document 01/13/20 09:09 [facility] (Rec: 01/13/20 09:17 [facility] [id number]) OT-Transfer Assessment Comments Mobility Comments Pt up in the room with SBA with FWW and able to do a better job to ease himself down with his arms when coming to sit. Pt states at home will go from adjustable bed to recliner. Pt not wanting to practice at this time for bed mobility needs. ROD FILLER to cover with pt and later. Pt and not wanting use of gait belt as well. Spoke to ROD FILLER and that she would try to go over gait belt safety with pt and especially for the stairs. OT- Gait Assessment Assistive Devices Assistive Device Front Wheeled Walker Comments Gait Ability Comments SBA with FWW. OT- Balance Assessment Sitting Balance and Reactions Static Sitting Balance Ability Normal Dynamic Sitting Balance Ability Good Standing Balance and Reactions Static Standing Balance Ability Fair Dynamic Standing Balance Ability Fair M8 OT- IP Objective Assessments Start: 01/11/20 12:10 Freq: Status: Active Protocol: Document 01/11/20 10:30 [facility] (Rec: 01/11/20 12:29 [facility] [id number]) OT Gross Range of Motion Upper Extremity Range of Motion Assessment Within Functional Limits OT Strength Upper Extremity Strength Assessment Within Functional Limits OT-Muscle Tone Assessment Muscle Tone WNL Yes M9 OT- IP Assessment and Plan Start: 01/11/20 12:10 Freq: Status: Active Protocol: Document 01/13/20 09:09 [facility] (Rec: 01/13/20 09:17 [facility] [id number]) OT Summary Assessment and Plan Potential Rehabilitation Potential Good Analytic Complexity at Evaluation Low Summary OT Impairments Pain,Functional Mobility, Dressing,Toileting,Bathing, Toilet Transfers,Shower Transfers,Activity Tolerance Progress Towards Goals Slow Progress due to Pain Assessment Summary Pt's present for caregiver training and already completed shower with pt prior to schedule time of 900Am for caregiver training. Pt's has good understanding to assist pt for all ADl needs and to be home to assist pt for all needs. Goals Days to Meet Goals 1 Frequency of Treatment Frequency Of Treatment Once a Day Discharge Recommendations OT Discharge Recommendations Home with Assistance Home Equipment Needs grab bar for shower Transportation Needs at Discharge Private Vehicle
[2020-01-13] MEDS: SODIUM CHLORIDE 0.9% FLUSH 10 ML IV (09:24)
[2020-01-13] MEDS: DOCUSATE 100 MG CAPSULE PO (09:24)
[2020-01-13] MEDS: OXYCODONE ER 10 MG TAB PO (09:24)
[2020-01-13] MEDS: lisinopriL 20 MG TABLET 40 MG PO (09:24)
--- NOTE | 2020-01-13 09:53 | PT.IPTN ---
Current Diagnoses Spondylolisthesis, lumbar region (01/11/20) Other spondylosis with radiculopathy, lumbosacral region (01/11/20) Spinal stenosis, lumbar region without neurogenic claudication (01/11/20) Surgery Performed Operation Date: 01/10/20 10:45 Actual Procedures p L4-5, L5-S1 TLIF with posterior instrumentation - Anabell Nix MD Physical Therapy Treatment Note M2 PT-IP Current Condition Start: 01/11/20 08:42 Freq: NEEDED Status: Active Protocol: Document 01/11/20 10:17 [facility] (Rec: 01/11/20 10:39 [facility] [id number]) Physical Therapy Current Condition Current Condition Evaluation Date 01/11/20 Treatment Diagnosis s/p L4-5 L5-S1 TLIF; impaired mobility; difficulty in walking Onset Date 01/10/20 Precautions Lumbar Precautions Log Roll,No Twisting,Limit Bending,Lifting Restriction of 10 lbs,Gait Belt above Incisional Area M3 PT-IP Subjective Start: 01/11/20 08:42 Freq: NEEDED Status: Active Protocol: Document 01/13/20 09:29 [facility] (Rec: 01/13/20 12:59 [facility] [id number]) Subjective Physical Therapy Visit Type Type Treatment Note Visit Start Time 09:29 Visit Stop Time 09:53 Total Visit Minutes 24 Notes in room. Assessed carryover of caregiver training. Number of ASSEMBLY AND PACKING SUPERVISOR Visits 2 Physical Therapy Visit Comments Patient Goals Return home with to assist when pain is better controlled. Therapy Pain Assessment Pain When Pain Assessed During Mobility Pain Present Pain Present Pain Reported Location low back Intensity 7 Scale Used 7/10 at rest , 8-9-/10 during mobility. Pain Behaviors Calling Out,Facial Grimacing, Guarding,Restlessness,Wincing Pain Management Techniques Apply Cold,Re-positioning, Timing of Activity with Medications M4 PT-IP Mobility and Gait Start: 01/11/20 08:42 Freq: NEEDED Status: Active Protocol: Document 01/13/20 09:29 [facility] (Rec: 01/13/20 12:59 [facility] [id number]) PT-Bed Mobility Assessment Rolling Type of Rolling Log Rolling,Roll to Left Level of Assist Minimal Assistance,1 Person Assistance Scooting Scooting to Edge of Bed Standby Assistance PT-Transfer Assessment Sit to and From Stand Sit to and from Stand Contact Guard Assistance,1 Person Assistance,Use of Upper Extremities Equipment Transfer Assistive Device Gait Belt,Front Wheeled Walker Transfers Transfer Destination Bed Transfer Technique pt ambulated with FWW Transfer Ability Level of Assist Contact Guard Assistance,1 Person Assistance,Use of Upper Extremities Comments Mobility Comments Pt sitting in chair upon arrival from therapy w/ in room. Pt SBA for scooting to EOC and CGA provided by for sit<>stand w/ FWW. Pt then ambulated ~180 ft to stairs w/ FWW and SBA to CGA and completed 3 steps w/ step to step pattern and CGA provided by . He then ambulated ~180 ft back to room w/ FWW and performed logroll into bed w/ bedrails Min A for LE guidance, and HOB elevated . Pt and state they have bed w/ incline ability at home . Pt c/o 8/10 pain when ambulating and 9/10 pain for transfers. Pts was able to safely provide assistance and cues appropriately during treatment. Instructed pt in TA activation to enforce protection of low back w/ mobility to decrease pain. Pt left in room w/ all needs in reach. Gait Assessment Gait Gait Assistance Required: Contact Guard Assist,1 Person Assist Distance (Feet) 375 Able to Maintain Weight Bearing Status Yes During Gait Assistive Devices Assistive Device Gait Belt,Front Wheeled Walker Orthotic/Prosthetic Devices or Brace: No Gait Deviations General Gait Pattern Antalgic,Decreased Stride Length,Decreased Feet Clearance,Flexed Trunk Factors Limiting Gait Function Factors Limiting Gait Function Decreased Activity Tolerance, Decreased Sensation,Decreased Strength,Difficulty Following Directions,Limited Range of Motion,Pain,Poor Balance,Poor Safety Awareness,Respiratory Distress Comments Gait Comments Pt ambulated ~375 ft total w/ FWW and SBA to CGA provided by . Pt relies somewhat heavily on BUE for support d/t pain during ambulation. Cues pt for core stabilization and upright posture when ambulating. Pt has flexed posture and required min cues to adhere to spinal precautions. Stair Climbing Assessment Evaluation Level of Assist On Stairs Contact Guard Assistance,1 Person Assistance Devices Stair Climbing Assistive Devices Left Railing Technique/Endurance Stair Climbing Direction Ascend and Descend Stair Climbing Technique Step to Step Number of Steps Climbed 3 Stair Climbing Set # Repetitions (reps) 1 Comments Stair Climbing Comments Pt ascended/descended 3 steps x1 w/ CGA provided by . Pt performed steps w/ step to step pattern and BUE on L hand rail for support with diagonal positioning of body to avoid twisting. PT-Balance Assessment Sitting Balance and Reactions Static Sitting Balance Ability Normal Dynamic Sitting Balance Ability Good Standing Balance and Reactions Static Standing Balance Ability Good Dynamic Standing Balance Ability Fair Device Used FWW M5 PT-IP Objective Assessments Start: 01/11/20 08:42 Freq: NEEDED Status: Active Protocol: Document 01/11/20 10:17 [facility] (Rec: 01/11/20 10:39 [facility] [id number]) Orientation Orientation/Cognition Level of Alertness Alert Orientation Name,Day of Week,Place, Situation Language Function Ability No Deficits Noted Safety Awareness Decreased Safety Awareness Memory Description No Deficits Noted Gross Range of Motion Upper Extremity ROM Assessment Within Functional Limits Lower Extremity ROM Assessment Within Functional Limits Strength Upper Extremity Strength Assessment Within Functional Limits Lower Extremity Strength Assessment Within Functional Limits Comments Strength Comments BLE grossly 5/5 Coordination Assessment Gross Coordination Gross Coordination WNL Sensation Assessment Sensation Gross Sensation Right LE Impaired,Left LE Impaired Light Touch Impaired Sensation Description Numbness Comments Sensation Comments Numbness reported B anterolateral thighs. Muscle Tone Muscle Tone WNL Yes M6 PT-IP Treatment Start: 01/11/20 08:42 Freq: NEEDED Status: Active Protocol: Document 01/13/20 09:29 [facility] (Rec: 01/13/20 12:59 [facility] [id number]) Physical Therapy Treatment Education Education Provided Precautions,Weight Bearing Status,Post-Op Packet,Safety Other Treatments Other Treatment Performed Educated pt on TA activation to decrease pain and protect spine. Reviewed precautions, assessed carryover from caregiver training. M7 PT-IP Assessment and Plan Start: 01/11/20 08:42 Freq: NEEDED Status: Active Protocol: Document 01/13/20 09:29 [facility] (Rec: 01/13/20 12:59 [facility] [id number]) PT Summary Assessment and Plan Potential Rehabilitation Potential Good Status of Condition at Evaluation Evolving Summary Impairments Pain,ROM,Strength,Balance, Sensation,Bed Mobility, Transfers,Gait,Activity Tolerance Assessment Summary Pt continues to c/o high pain w/ and w/o mobility. Pts was able to provide necessary cues and guarding throughout treatment and demonstrated good carryover from previous caregiver training. Pt SBA for scooting, CGA for sit<>stand, SBA to CGA for ambulation w/ FWW, and CGA for stairs, Min A for logroll for LE guidance. Pt and state they feel safe to return home and perform necessary tasks. Pt would benefit from outpatient therapy to improve core stabilization, decrease pain, and improve spinal mobility and strengthening when appropriate. Goals Bed Mobility Goal Standby Assistance Transfer Goal Standby Assistance,Front Wheeled Walker Gait Goal Standby Assistance,Front Wheel Walker Gait Distance 200 Other Goals - up/down 2 steps with L rail ascending SBA - pt will verbally teach back all spinal precautions Days to Meet Goals 2 Frequency of Treatment Frequency Of Treatment Twice a Day Treatment Plan Physical Therapy Treatment Plan Bed Mobility Training,Transfer Training,Gait Training, Therapeutic Exercise,Balance Retraining,Post Op Education, Discharge Planning,Hot or Cold Pack,Neuromuscular Re-ed Other Recommendations and Next Treatment review precautions, bed Focus mobility, progress gait distance with FWW; Recommendations To Nursing Amount of Assist Needed 1 Person Assist Discharge Recommendations PT Discharge Recommendations Home with Assistance, Outpatient PT Transportation Needs at Discharge Private Vehicle
[2020-01-13] MEDS: ACETAMINOPHEN 325 MG TABLET 650 MG PO (11:02)
[2020-01-13] MEDS: diazePAM 5 MG TABLET PO (11:02)
--- NOTE | 2020-01-13 12:57 | PC.NURSE ---
Patient cleared by PT and OT, and completed caregiver training with and therapies. They state understanding. IV dc'd intact. Patient had lunch and wanted to wait until next dose of pain medicine was available prior to leaving. Coversite to dressing remains intact. Voiding without complaint or difficulty. Patient states he did have small BM this morning. Discharge instructions and home care handouts reviewed with patient and his . They state understanding and have no further questions or concerns at this time. Escorted out via wheelchair with all belongings to discharge to home with .
== END 2020-01-13 13:03 | disposition home or self-care (01) | DRG 455 ==
LOC: OR 09:00 → AC 10:48 → OR 01-13 13:21 → AC 01-13 13:28
PROVIDERS: Admitting Provider Orthopaedic Surgery Orthopaedic Surgery of the Spine; Family Provider Family Medicine; PCP Family Medicine; Referring Provider Orthopaedic Surgery Orthopaedic Surgery of the Spine; Visit Provider Orthopaedic Surgery Orthopaedic Surgery of the Spine
PROC: 0SG00AJ Fusion of Lumbar Vertebral Joint with Interbody Fusion Device, Posterior Approach, Anterior Column, Open Approach (ICD-10-PCS; principal; 2020-01-10 10:45)
DX: M43.16 Spondylolisthesis, lumbar region (principal); M47.27 Other spondylosis with radiculopathy, lumbosacral region; M48.061 Spinal stenosis, lumbar region without neurogenic claudication; I10 Essential (primary) hypertension; M43.17 Spondylolisthesis, lumbosacral region; M48.07 Spinal stenosis, lumbosacral region; M47.26 Other spondylosis with radiculopathy, lumbar region; G89.18 Other acute postprocedural pain
CPT/HCPCS: 36415; 72100; 76000; 85014; 85018; 94760; 97116; 97161; 97165; 97530; 97535; C1776; G0378; C9290; J0330; J0690; J1100; J1170; J2060; J2250; J2405; J2704; J3010; J3410

== ENCOUNTER → 2021-04-06 11:32 | Outpatient (CLI) | payer OTHER, SELFPAY ==
[2020-01-10 16:49] VITALS: BMI 36.9
[2021-04-06 14:10] LABS: COVID19 -Nasal RAPID Negative (Negative)
== END ==
PROVIDERS: Visit Provider Nurse Practitioner
DX: Z20.822 Contact with and (suspected) exposure to COVID-19 (principal); Z01.812 Encounter for preprocedural laboratory examination
CPT/HCPCS: 87635

== ENCOUNTER 2021-04-09 10:53 | Observation (INO) | payer OTHER, SELFPAY ==
[2020-01-10 16:49] VITALS: BMI 36.9
[2021-04-02 12:35] VITALS: BMI 37.6
[2021-04-09] VITALS (16 sets, daily range): BP systolic 115–148; BP diastolic 57–88; PULSE 80–101; RESP 10–21; TEMP 36.2–37.3; O2SAT 90–98; BMI 36.6
[2021-04-09] MEDS: LACTATED RINGERS 1,000 ML 42 ML IV ×3 (11:17→17:14)
[2021-04-09] MEDS: ACETAMINOPHEN 325 MG TABLET 975 MG PO (11:19)
--- NOTE | 2021-04-09 12:17 | PM.PREOP ---
Pre-operative Note COVID-19 COVID-19 status: Negative Result date/Date tested (Pos, Neg/Pending): 04/07/21 Interval Note History & Physical reviewed/Exam performed by Physician: Yes Changes to H&P: No
[2021-04-09] MEDS: CEFAZOLIN 1 GM VIAL 2 GM IV ×2 (13:30→21:39)
[2021-04-09] MEDS: BUPIVACAINE LIPOSOME 266 MG/20 ML VIAL INJ (13:52)
[2021-04-09] MEDS: BUPIVACAINE 0.25% (PF) VIAL 30 ML INJ (13:53)
[2021-04-09] MEDS: EPINEPHrine 1 MG/ML 0.15 MG INJ (13:53)
--- NOTE | 2021-04-09 16:00 | DI.RAD.S_ITS ---
PROCEDURE: XR LUMBAR SPINE 2-3V INDICATIONS: L3-4 TLIF TECHNIQUE: Low resolution fluoroscopic spot films were obtained intraoperatively. COMPARISON: [facility], CR, XR LUMBAR SPINE 2-3V, 01/10/2020, 14:29. FINDINGS: Low resolution fluoroscopic spot films shows interval 3 4 discectomy and fusion with jerrell and screw instrumentation revision, all in good position. IMPRESSION: Intraoperative fluoroscopic guidance. Approved by: Charlie Franco M.D. on 04/09/2021 at 16:15
--- NOTE | 2021-04-09 17:11 | P.OP_ITS ---
Operative Date/Time/Diagnoses Date of procedure: 04/09/21 Time of procedure: 13:00 Pre-op diagnosis: 1. Lumbar hardware failure with history of L4-S1 fusion 2. Lumbar L3-4 spinal stenosis with radiculopathy Post-op diagnosis: same Procedure & Clinicians Procedure: 1. L3-4 posterolateral and posterior interbody fusion 2. L3-4 posterior interbody cage placement 3. L4-5, L5-S1 posterior non-segmental instrumentation removal 4. L4-5, L5-S1 revision laminectomy with exploration of fusion 5. L3-4, L4-5, L5-S1 posterior segmental instrumentation with pedicle screw placement 6. L4-5 posterolatearl fusion 7. [place] of bone marrow from iliac crest through a separate incision 8. Utilization of microsurgical technique and operating microscope Same procedure as scheduled: Yes Indications: Patient has been having worsening back pain with history of lumbar fusion. Patient's x-ray and CT showed broken fusion jerrell on the left side of his spinal hardware. Patient failed multiple conservative management with worsening pain weakness and numbness in her lower extremity. Patient has been having difficulty performing activity of daily living. After discussing risks benefits of treatment options, patient elected proceed with surgery. Surgeon: Anabell Nix Trailer Driver: Karen Fontanez Click Yes if Unassisted: No Anesthesia Type: General Operative Notes Closure Type: primary Specimen(s): none sent Prosthetic devices, grafts, tissues, transplants, or devices: Globus revolve screws, Rise cage Applied: catheter Estimated Blood Loss (mL): 150 Blood products transfused: none Procedure in detail: Patient was seen in the preoperative area. Risks and benefits of the surgery was discussed with the patient. Informed consent was obtained from the patient and placed in the chart. Surgical site was marked. Patient was taken to the operative room. General anesthesia was administered. Prophylactic antibiotic was given to the patient less than 30 min before the incision was made. Patient was placed into a prone position on the Wilder table. Patient's back was then prepped and draped in the sterile fashion. Time- out was performed at this time. Using patient's previous scar incision was made over the L3-4 L4-5 L5-S1 interval on the left side. Fascia was incised in line with skin incision. Patient's previously placed hardware over the L4-5 L5-S1 level was identified by dissecting down to the level the hardware using a Bovie and a Abreu. The locking caps which was removed using globus screwdriver. The locking jerrell was then removed from the tulips of the pedicle screws using a Eligio. The left-sided jerrell was found to be broken at the L4-L5 junction. The pedicle screws were then removed using the screwdriver. The screws were found to have good purchase at L5 bilaterally and less good purchase at L4 bilaterally. In order to gain better purchase and prevent future hardware breakage, decision was made to extend the patient's fusion to L3-4 level. This will also address patient's spondylosis and radiculopathy contributed by the L3-4 spinal stenosis. The Globus and MARS retractors was then placed into the wound and docked onto the L3 lamina using C-arm guidance. Using microsurgical technique and operating microscope a laminectomy facetectomy was performed by removing the L3 lamina and the L3-4 facet. The disc space at L3-4 level was identified next. And a total diskectomy was performed at L3-4 level. The endplates were decorticated using a rasp and shaver. Patient was found to have significant neural foramen stenosis on the left side of L3-4 level, which was fully decompressed after the laminectomy facetectomy colon was completed. The decompression also rendered L3-4 level grossly unstable and require fusion procedure at the same time. The total diskectomy and decortication was performed at L3-4 level in order to to accomplish a L3-4 fusion. The local bone from the laminectomy and facetectomy was saved for local bone grafting. After the total diskectomy and decortication was completed, Globus Trifecta bone graft material was combined with local bone that was harvested earlier. At this time, a separate skin is incision was made over the iliac crest. A Jamshidi needle was inserted into the iliac crest through a separate skin incision. 5 cc of bone marrow aspiration was obtained through the separate skin incision using a Jamshidi needle from the iliac crest. The bone marrow aspiration was combined with local bone and the via cell bone grafting material. The bone grafting material was placed into the L3-4 interbody space along with a expandable cage. The cage was expanded to its maximum height using the torque limiting screwdriver. At this time a mirror image incision was made on the right side. The fascia was incised in line with the skin incision. Patient's previously placed hardware on the right side was then removed in the same fashion as it was on the right side. The hardware was also found to have good purchase at L5 level with less purchase at L4 level. The fusion mass on the left side was exposed by performing a right-sided hemilaminectomy at L4-5 L5-S1 level. The hemilaminectomy was performed using the Kerrison rongeur to undercut the lamina as well removing additional epidural scar tissue for purpose of decompressing the epidural space. The fusion mass was explored and was found have visible motion indicating pseudoarthrosis at L4-5 level with solid fusion at L5-S1 level. Globus MARS retractor was inserted and docked onto the L4-5 L3-4 posterolateral gutter. Using the power drill, posterior-lateral decortication was performed at L3-4 L4- 5 level until bleeding cortical bone was identified. The remaining bone grafting material was placed into the L3-4 L4-5 posterior lateral gutter he order to accomplish posterolateral fusion at the L3-4 L4-5 level. Using the double C-arm technique, pedicle screws were placed into the L3-L4 L5 and S1 pedicles bilaterally. This was done by placing the Jamshidi needle into the pedicles, then placing the guidewires over the Jamshidi needle, and finally placing the cannulated screws over the guidewires bilaterally. After the pedicle screws were placed, 2 titanium rods was locked into the heads of the pedicle screws using locking caps and torque limiting screwdriver. During placement of L4 pedicle screws, tap was used to make a pathway for the screws due to the previously placed L4 pedicle screws. And 7.5 mm instead of 6.5 mm were placed into the L4 pedicles bilaterally in order to gain better purchase. After all the hardware was placed, and confirmed with AP and lateral C-arm imaging, the wound was then irrigated with sterile normal saline and packed with Ray-Ashley gauze for 3 min to accomplish hemostasis. After the gauze was removed the deep fascia was closed with #1 Vicryl suture. The subcutaneous layer was closed with 2-0 Vicryl. The skin was closed with skin suhail. Patient tolerated the procedure well. There were no complications. Complications: none Post-operative Condition: stable Disposition: PACU Plan for aftercare: Admit to inpatient hospital
[2021-04-09] MEDS: LORazepam 2 MG/ML INJ 0.25 MG IV (17:44)
[2021-04-09] MEDS: hydrOXYzine pamoate 25 MG CAPSULE PO ×2 (17:54→23:49)
[2021-04-09] MEDS: OXYCODONE IR 5 MG TABLET PO ×2 (17:55→18:17)
[2021-04-09] MEDS: fentaNYL 100 MCG/2 ML INJ IV (17:59)
[2021-04-09] MEDS: SODIUM CHLORIDE 0.9% 1,000 ML 100 ML IV (19:07)
[2021-04-09] MEDS: HYDROMORPHONE 0.5 MG INJ IV ×3 (19:23→23:21)
[2021-04-09] MEDS: OXYCODONE IR 5 MG TABLET 10 MG PO ×2 (19:33→23:49)
[2021-04-09] MEDS: ACETAMINOPHEN 325 MG TABLET 650 MG PO (19:34)
[2021-04-09] MEDS: DOCUSATE 100 MG CAPSULE PO (21:33)
[2021-04-09] MEDS: ZOLPIDEM 5 MG TABLET PO (21:34)
[2021-04-09] MEDS: SENNOSIDES 8.6 MG TABLET 17.2 MG PO (21:34)
[2021-04-09] MEDS: diazePAM 5 MG TABLET PO (22:36)
--- NOTE | 2021-04-09 22:50 | PC.NURSE ---
Pt came back from surgery at 1835, pt alert and oriented X 4. Pt came with a cee catheter. Pt has had back surgery in the past and in consern in regards pain medication. Pt dressing to back incision in clean dry and intact. CMS within normall limits. Pt would like to be woken up by nursing for pain medication, will communicate this with the oncoming nurse.
[2021-04-10] VITALS (9 sets, daily range): BP systolic 103–166; BP diastolic 60–90; PULSE 79–102; RESP 16–18; TEMP 36.1–37.2; O2SAT 94–98
[2021-04-10] MEDS: HYDROMORPHONE 0.5 MG INJ IV ×5 (01:36→15:46)
[2021-04-10] MEDS: ACETAMINOPHEN 325 MG TABLET 650 MG PO ×2 (01:36→07:53)
--- NOTE | 2021-04-10 01:57 | PC.NURSE ---
Addendum entered by Vianey Go R.N. 04/10/21 05:38: Continues to insist on taking whatever pain meds/muscle relaxants he can have whenever he can have them. Does not appear to be in severe pain but states pain is constantly at 6-9/10. After receiving pain medications and asked if pain has decreased he states I don't know what you want me to say...it's being managed with what you're giving me. Slept at short intervals. Able to carry on conversation without grimacing. Does not appear sedated nor is he restless. Original Note: Patient is alert and oriented. Breath sounds CTA with RA sat of 96%. HRR. BP elevated at 142/82. Denied nausea. BT present but denied passing flatus as yet. Indwelling catheter is patent; urine is clear yellow. Is able to move himself in bed. Complained of 9/10 pain and requests he be awakened for any pain medication he can have throughout night as prior hospitalization pain was not well controlled. Stated pain not getting much better than 7/10 since return from surgery and pain was discussed with Dr Nix and anesthesiologist prior to surgery. Offered to contact MD for different pain medication to help pain but patient declines stating what he is currently taking will be enough until he sees MD in the a.m. Is being medicated with oxycodone q3h, dilaudid q2h, tylenol q6h, vistaril q4h, and valium q6h; ice pack also applied to back. Dressing to back is CDI. Does state he is having muscles spasms and numbness in right quadriceps muscle but otherwise CMS is intact. Had foot SCD's on at start of shift but requested they be off as he felt they were causing increase in discomfort; reminded to ankle wave. Fall risk score is moderate and bed alarm is activated. Gait not assessed as has not yet been out of bed.
[2021-04-10] MEDS: OXYCODONE IR 5 MG TABLET 10 MG PO ×6 (02:50→18:50)
[2021-04-10] MEDS: hydrOXYzine pamoate 25 MG CAPSULE PO ×6 (03:45→23:25)
[2021-04-10] MEDS: diazePAM 5 MG TABLET PO ×2 (04:30→10:58)
[2021-04-10] MEDS: CEFAZOLIN 1 GM VIAL 2 GM IV (05:33)
[2021-04-10] MEDS: DOCUSATE 100 MG CAPSULE PO ×2 (07:53→20:48)
[2021-04-10 07:54] LABS: Hematocrit 49.7 % (41-53); Hemoglobin 16.2 g/dL (13.5-17.5)
[2021-04-10] MEDS: SODIUM CHLORIDE 0.9% FLUSH 10 ML IV ×2 (07:59→20:51)
[2021-04-10] MEDS: lisinopriL 20 MG TABLET 40 MG PO (08:01)
--- NOTE | 2021-04-10 10:05 | PT.IIE ---
Current Diagnoses Unspecified fracture of unspecified lumbar vertebra, subsequent encounter for fracture with nonunion (04/09/21) Other mechanical complication of other internal orthopedic devices, implants and grafts, initial encounter (04/09/21) Arthrodesis status (04/09/21) Surgery Performed Operation Date: 04/09/21 12:15 Actual Procedures p L3-4 TLIF, L4-S1 lumbar HWR, exploration of fusion, repeat laminectomy, reinsertion of hardware - Anabell Nix MD Medical History (Last Reviewed 04/10/21 @ 10:36 by Yahir Zuniga PA-C) Arthritis HTN (hypertension) FELICITA on CPAP Sciatica Physical Therapy Inpatient Evaluation/Re-Eval M1 PT/OT-IP Prior Functional Status Start: 04/10/21 12:29 Freq: NEEDED Status: Active Protocol: Document 04/10/21 10:05 AB (Rec: 04/10/21 12:54 AB [email or web address]) Medical Review Prior Functional Status Medical History Reviewed Yes Communication able to make needs known Mobility and Gait pt stated that he is independent with all mobilities and ambulation without AD Social History Household Members spouse,children Living Arrangements House Number of Floors (Floors) One Floor Number of Stairs To Enter/Railing? 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 and can assist pt pt stated that he had back surgery november/december of last year and stated that he is set up at home and knows what to do M2 PT-IP Current Condition Start: 04/10/21 12:42 Freq: NEEDED Status: Active Protocol: Document 04/10/21 10:05 AB (Rec: 04/10/21 12:54 AB [email or web address]) Physical Therapy Current Condition Current Condition Evaluation Date 04/10/21 Treatment Diagnosis s/p L3-4, L4-5, L5S1 fusion; L3-S1 instrumentation; difficulty in walking Onset Date 04/09/21 Precautions Lumbar Precautions Log Roll,No Twisting,Limit Bending,Lifting Restriction of 10 lbs,Gait Belt above Incisional Area M3 PT-IP Subjective Start: 04/10/21 12:42 Freq: NEEDED Status: Active Protocol: Document 04/10/21 10:05 AB (Rec: 04/10/21 12:54 [email or web address]) Subjective Physical Therapy Visit Type Type Initial Evaluation Visit Start Time 10:05 Visit Stop Time 10:30 Total Visit Minutes 25 Number of MEDICAL [facility]ENTER REPRESENTATIVE Visits 0 Physical Therapy Visit Comments Patient Comments c/o increase back pain Therapy Pain Assessment Pain When Pain Assessed At Rest Pain Present Pain Present Pain Reported Location low back Intensity 6 Scale Used increases to 9/10 with mobility Pain Behaviors Guarding,Holding Area, Restlessness,Wincing Pain Management Techniques Apply Cold,Distraction, Modification of Treatment,Re- positioning,Timing of Activity with Medications M4 PT-IP Mobility and Gait Start: 04/10/21 12:42 Freq: NEEDED Status: Active Protocol: Document 04/10/21 10:05 (Rec: 04/10/21 12:54 [email or web address]) PT-Bed Mobility Assessment Rolling Type of Rolling Log Rolling Level of Assist Moderate Assistance Supine to Sit Supine to Sit Moderate Assistance,Maximum Assistance,1 Person Assistance ,Head of Bed Elevated,Bedrails PT-Transfer Assessment Sit to and From Stand Sit to and from Stand Moderate Assistance,Maximum Assistance,1 Person Assistance ,Use of Upper Extremities Equipment Transfer Assistive Device Gait Belt,Front Wheeled Walker Transfers Transfer Destination Chair Transfer Technique Stand Step Pivot Transfer Ability Level of Assist Moderate Assistance,Maximum Assistance,1 Person Assistance ,Use of Upper Extremities Comments Mobility Comments reviewed back precautions and log roll bed mobility with pt. Pt stated that he has his back surgery last november/december last year and is familiar with back precautions. completed log roll bed mobilty with HOB elevated and used bed rail for support. spouse in room and assist pt with supine to sit. pt was able to sit on EOB SBA. c/o increase back pain. c/o bilateral quads tingling/slight numbness . completed sit to stand max A and max cues. able to take steps to transfer to bed using FWW max A and max cues. pt presents with unsteadiness and needs max A for standing balance and needs increase time to complete task. pt stated that he cannot walk right now but agreed to sit up on the chair. positioned pt on the chair. ice pack provided. call light and table placed within reach. Gait Assessment Comments Gait Comments able to take steps during ambulation but unable to walk more due to c/o increase pain PT-Balance Assessment Sitting Balance and Reactions Static Sitting Balance Ability Good Dynamic Sitting Balance Ability Good Standing Balance and Reactions Static Standing Balance Ability Poor Dynamic Standing Balance Ability Poor Device Used FWW M5 PT-IP Objective Assessments Start: 04/10/21 12:42 Freq: NEEDED Status: Active Protocol: Document 04/10/21 10:05 AB (Rec: 04/10/21 12:54 AB [email or web address]) Orientation Orientation/Cognition Level of Alertness Alert Orientation Name,Age,Birthday,Month,Date, Year,Day of Week,Place, Situation Language Function Ability No Deficits Noted Safety Awareness Decreased Safety Awareness Memory Description No Deficits Noted Gross Range of Motion Lower Extremity ROM Assessment Within Functional Limits Strength Lower Extremity Strength Assessment Bilaterally Impaired Hip 3+/5 Knee 3+/5 Sensation Assessment Sensation Sensation Description Tingling Comments Sensation Comments B quads Muscle Tone Muscle Tone WNL Yes M6 PT-IP Treatment Start: 04/10/21 12:42 Freq: NEEDED Status: Active Protocol: Document 04/10/21 10:05 AB (Rec: 04/10/21 12:54 AB [email or web address]) Physical Therapy Treatment Education Education Provided Precautions,Weight Bearing Status,Safety M7 PT-IP Assessment and Plan Start: 04/10/21 12:42 Freq: NEEDED Status: Active Protocol: Document 04/10/21 10:05 AB (Rec: 04/10/21 12:54 AB [email or web address]) PT Summary Assessment and Plan Potential Rehabilitation Potential Good Status of Condition at Evaluation Evolving Summary Impairments Pain,ROM,Strength,Balance, Coordination,Sensation,Tone, Cognition,Bed Mobility, Transfers,Gait,Activity Tolerance Assessment Summary pt with c/o increase pain affecting mobility and activity tolerance and requiring mod to max A for transfers using fWW and unable to ambulate at this time. will continue to assess progress. spouse will be able to assist pt at home and when appropriate, will conduct caregiver training. Goals Bed Mobility Goal Standby Assistance Transfer Goal Standby Assistance,Front Wheeled Walker,Four Wheeled Walker Gait Goal Standby Assistance,Front Wheel Walker,Four Wheel Walker Gait Distance 150 Other Goals up/down 2 steps L rail ascending SBA Days to Meet Goals 10 Frequency of Treatment Frequency Of Treatment Twice a Day Treatment Plan Physical Therapy Treatment Plan Bed Mobility Training,Transfer Training,Gait Training, Therapeutic Exercise,Balance Retraining,Post Op Education, Discharge Planning,Hot or Cold Pack,Neuromuscular Re-ed, Coordination Retraining,Manual Therapy Precautions Lumbar Precautions Log Roll,No Twisting,Limit Bending,Lifting Restriction of 10 lbs,Gait Belt above Incisional Area Recommendations To Nursing Amount of Assist Needed 1 Person Assist Discharge Recommendations PT Discharge Recommendations Home with Assistance Equipment Needed for Home Before FWW if not safe with 4WW Discharge Transportation Needs at Discharge Private Vehicle
--- NOTE | 2021-04-10 10:30 | PC.NURSE ---
Pt appearing restless in bed; requires verbal prompting to observe proper spinal precautions as he was not keeping shoulder and hips aligned as he was turning in bed, attempting to pull out his bed pad from under him. When he pulled out bedpad, noted multiple areas of sanguinous discharge on pad. Bed placed in flat position and assisted pt to log roll. Saturated dressing lower back falling off. Removed dressing, small amount of active bleeding noted toward top of right side incision. Noted incision on each side of back, well approximated with suhail. Cleansed incision area with chlorhexidine, and placed sterile gauze with island dressing on each incision. Medicated for pain as pt experienced increased pain. Will continue to monitor.
--- NOTE | 2021-04-10 10:35 | PM.PNPO.1 ---
Subjective Subjective Date Patient Seen: 04/10/21 Time Patient Seen: 10:35 Interval history: Patient's pain is been moderate to severe. Had difficulty ambulating with physical therapy this morning. Patient states his legs feel weak. No fever chills. No nausea vomiting. Exam Vital Signs (past 8 hours): - 04/10/21 03:33 04/10/21 04:08 04/10/21 07:30 Temperature 98.5 F 97.8 F 98.2 F Pulse Rate 79 86 96 H Respiratory Rate 18 18 18 Blood Pressure 140/82 142/80 H 144/77 H Pulse Oximetry 96 94 95 04/10/21 08:01 04/10/21 08:16 Temperature Pulse Rate 102 H Respiratory Rate 16 Blood Pressure 166/90 H Pulse Oximetry 97 Oxygen Delivery Method Room Air Oxygen Flow Rate 0 Narrative Exam Narrative: 51-year-old male resting comfortably in bedside chair no apparent distress. Zamudio catheter in place. Motor functions intact bilateral lower extremities. Sensation grossly intact to light touch bilateral lower extremities. The dressing was apparently saturated this morning and was just replaced it is now clean dry and intact. Objective Labs Result Diagrams: 04/10/21 07:20 Labs: Laboratory Results - last 24 hr 04/10/21 07:20 Hgb 16.2 Hct 49.7 PFSH Medical History Arthritis HTN (hypertension) FELICITA on CPAP Sciatica Surgical History History of carpal tunnel release of both wrists (2018) History of lumbar spinal fusion (01/10/20) Hx of hernia repair (~01/2021) S/P cervical spinal fusion (2009) Social History household members: spouse and children Smoking Status: Never smoker alcohol intake: former Assessment & Plan Post-op Postoperative Procedures: Procedures Operation Date: 04/09/21 12:15 Actual Procedure Side Surgeon p L3-4 TLIF, L4-S1 lumbar HWR, exploration of fusion, repeat laminectomy, reinsertion of hardware Anabell Nix MD Postoperative day: 1 Postoperative status narrative: Stable Postoperative plan narrative: Limit bending, lifting, twisting Mobilize with physical therapy Continue to work on pain control Disposition home likely 1-2 days. Quality VTE Deep Vein Thrombosis/Pulmonary Embolism Present on Admission: No
[2021-04-10] MEDS: HYDROMORPHONE 2 MG TABLET PO ×3 (10:58→23:25)
--- NOTE | 2021-04-10 11:08 | OT.IP.TRT ---
Current Diagnoses Unspecified fracture of unspecified lumbar vertebra, subsequent encounter for fracture with nonunion (04/09/21) Other mechanical complication of other internal orthopedic devices, implants and grafts, initial encounter (04/09/21) Arthrodesis status (04/09/21) Surgery Performed Operation Date: 04/09/21 12:15 Actual Procedures p L3-4 TLIF, L4-S1 lumbar HWR, exploration of fusion, repeat laminectomy, reinsertion of hardware - Anabell Nix MD Occupational Therapy Treatment Note M3 OT- IP Subjective and Pain Start: 04/10/21 12:29 Freq: Status: Active Protocol: Document 04/10/21 12:29 [facility] (Rec: 04/10/21 12:37 [facility] [id number]) OT- Subjective Occupational Therapy Visit Type Type Treatment Note Visit Start Time 11:08 Visit Stop Time 11:17 Total Visit Minutes 9 Notes Pt had prior back sx 01/10/20 and pt's able to assist pt on prior sx. Occupational Therapy Visit Comments Patient Comments Pt not wanting to do OT eval and agreed to speak to OT regarding OT needs. Patient/Caregiver Goals TO go home. OT Pain Assessment Pain When Pain Assessed At Rest Pain Present Pain Present Pain Reported M4 OT- IP ADL's Start: 04/10/21 12:29 Freq: Status: Active Protocol: Document 04/10/21 12:29 [facility] (Rec: 04/10/21 12:37 [facility] [id number]) OT OMB-Wdeo-Pebogax Comments OT Self-Feeding Comments NO issues noted. OT ADL-Oral Care Comments Oral Care Comments Reminded pt best to spit into a cup to best follow his back precuations. OT ADL-Dressing General Eval Lower Body Dressing Ability Maximum Assistance Areas Needing Assistance Socks Comments OT Dressing Comments Pt states did end of getting a j2ee architect and his and kids can assist him with his socks and shoes. OT ADL-Toileting Comments OT Toileting Comments Pt states prior able to lean to wipe and reminded pt of use wet wipes to increase the ease and also to get assist as needed. OT ADL-Bathing Comments OT Bathing Comments Pt states did not use a shower chair last time. Suggested may need one pending how pt's progresses. M9 OT- IP Assessment and Plan Start: 04/10/21 12:29 Freq: Status: Active Protocol: Document 04/10/21 12:29 [facility] (Rec: 04/10/21 12:37 [facility] [id number]) OT Summary Assessment and Plan Potential Rehabilitation Potential Analytic Complexity at Evaluation Summary OT Impairments Pain,Functional Mobility, Grooming,Dressing,Toileting, Bathing,Toilet Transfers, Shower Transfers Progress Towards Goals Slow Progress due to Pain,Slow Progress due to Activity Tolerance Assessment Summary Pt just agreeing to talk to OT and not wanting a formal OT eval as just had back surgery over a year ago and feels that his is capable to be able to assist pt for all needs. Therefore to touch base with pt again tomorrow regarding OT eval again.
--- NOTE | 2021-04-10 11:17 | OT.IP.TRT ---
Current Diagnoses Unspecified fracture of unspecified lumbar vertebra, subsequent encounter for fracture with nonunion (04/09/21) Other mechanical complication of other internal orthopedic devices, implants and grafts, initial encounter (04/09/21) Arthrodesis status (04/09/21) Surgery Performed Operation Date: 04/09/21 12:15 Actual Procedures p L3-4 TLIF, L4-S1 lumbar HWR, exploration of fusion, repeat laminectomy, reinsertion of hardware - Anabell Nix MD Occupational Therapy Treatment Note M3 OT- IP Subjective and Pain Start: 04/10/21 12:29 Freq: Status: Active Protocol: Document 04/10/21 12:29 [facility] (Rec: 04/10/21 12:37 [facility] [id number]) OT- Subjective Occupational Therapy Visit Type Type Treatment Note Visit Start Time 11:08 Visit Stop Time 11:17 Total Visit Minutes 9 Notes Pt had prior back sx 01/10/20 and pt's able to assist pt on prior sx. Occupational Therapy Visit Comments Patient Comments Pt not wanting to do OT eval and agreed to speak to OT regarding OT needs. Patient/Caregiver Goals TO go home. OT Pain Assessment Pain When Pain Assessed At Rest Pain Present Pain Present Pain Reported M4 OT- IP ADL's Start: 04/10/21 12:29 Freq: Status: Active Protocol: Document 04/10/21 12:29 [facility] (Rec: 04/10/21 12:37 [facility] [id number]) OT [id number] Comments OT Self-Feeding Comments NO issues noted. OT ADL-Oral Care Comments Oral Care Comments Reminded pt best to spit into a cup to best follow his back precautions. OT ADL-Dressing General Eval Lower Body Dressing Ability Areas Needing Assistance Comments OT Dressing Comments Pt states did end of getting a annual giving officer and his and kids can assist him with his socks and shoes. OT ADL-Toileting Comments OT Toileting Comments Pt states prior able to lean to wipe and reminded pt of use fo wipes to increase the ease and also to get assist as needed. OT ADL-Bathing Comments OT Bathing Comments Pt states did not use a shower chair last time. Suggested may need one pending how pt's progresses. M9 OT- IP Assessment and Plan Start: 04/10/21 12:29 Freq: Status: Active Protocol: Document 04/10/21 12:29 [facility] (Rec: 04/10/21 12:37 [facility] [id number]) OT Summary Assessment and Plan Potential Rehabilitation Potential Good Analytic Complexity at Evaluation Low Summary OT Impairments Pain,Functional Mobility, Grooming,Dressing,Toileting, Bathing,Toilet Transfers, Shower Transfers Progress Towards Goals Slow Progress due to Pain,Slow Progress due to Activity Tolerance Assessment Summary Pt just agreeing to talk to OT and not wanting a formal OT eval as just had back surgery over a year ago and feels that his is capable to be able to assist pt for all needs. Therefore to touch base with pt gain tomorrow regarding OT eval again.
--- NOTE | 2021-04-10 11:56 | CM.DANOTE ---
Patient is a 51 yo male who was admitted on 04/09/21 for Lumbar Fusion. Pt has REG PPO and [employer] for insurance and his PCP is not listed. EMR was reviewed. Per Ortho, pt tolerated procedure well and had some pain management issues and likely plan of d/c home in 1-2 days and pt still has cee. Per PT/OT, recommending likely d/c home with assist and outpt PT pending progress and pain. SW met bedside with pt and spouse and explained role and they confirm they live in [place] [facility] at home and have children that are older and are in school and have family to assist with kids while pt is admitted. Pt has hx of prior back surgeries and denies any hx of HH or SNF. Pt confirms that he has been established with outpt PT and preference is outpt PT and not currently interested in HH. Spouse states that she works from home and can be available for 24/7 assist and they both state they feel very prepared for recovery from previous surgeries. Pt and spouse do not anticipate any d/c needs. Plan: SW to follow for cee to be discontinued and pt to void independently and further PT/OT towards plan of home with spouse and outpt PT and any further identified needs. SCOTT Draper Discharge Planning/Care Management CM Discharge Assessment Start: 04/10/21 11:55 Freq: Status: Active Protocol: Document 04/10/21 11:55 [facility] (Rec: 04/10/21 11:56 [facility] [id number]) Discharge Planning Assessment Assigned Heading Machine Operator Scott Aburto DPOA/Assigned Designee Name informally spouse Lenora Contact Information [phone] Advance Directives? No Advance Directives on File No History Provided By Patient,Significant Other, Medical Record Has Patient been admitted in last 30 No days? Prior Living Arrangements House Household Members spouse,children Type of transporation used prior to Drives own vehicle admit Independent with ADL's Yes Is patient alert and oriented? Yes Needs Assistance With Home Chores / Shopping Caregiver for Another Yes: older children at home Community Services used prior to Physical Therapy admission: DME Already Rented / Owned Cane Patient/Family Preference OP PT Therapy Barriers to Discharge No Discharge Plan Home Community Services Physical Therapy Transportation Arrangement Spouse Referrals Initiated None needed Whiteboard Updated in Patient Room with Yes name and ext. # of Heading Machine Operator Review Status In Process Please Provide Date Initial DC 04/10/21 Assessment Was Performed Next Review Type Continued Stay Review Pre-Anesthesia Assessment Start: 04/02/21 12:35 Freq: Status: Complete Protocol: Document 04/02/21 12:35 [facility] (Rec: 04/02/21 13:38 [facility] [id number]) Pre-Anesthesia Assessment PAC Comment Pt takes a diuretic but did not know the name. Advised him not to take the diuretic or his lisinopril dos. Preferred Name Clint Patient Information Reviewed Via Phone Assessment Assessment Completed With Patient H&P Completed Within 30 Days Yes Comment Doing labs today, COVID screen @ 04/06/21 Seen Specialist in Last 12 Months Yes Specialist Seen Orthopedist Primary Language Yi Preferred Language Yi Act Tutor Required No Height 175.26 cm Weight 115.666 kg Body Mass Index (BMI) 37.6 Hearing Ability Normal Visual Impairment No Limitations Visual Assist None Dentition Type Teeth, Natural Present Barriers to Learning None Hx Anesthesia Reactions Yes: I woke up during my last back surgery Hx Family Anesthesia Reaction No Hx Malignant Hyperthermia No Hx Blood Transfusions No Hx Blood Transfusion Reaction No Anesthesia Review Requested No alcohol intake former Smoking Status Never smoker Substance Use Type does not use Pain Present Pain Reported Musculoskeletal Symptoms Back Pain,Difficulty Walking, Muscle Cramps,Muscle Spasms, Muscle Weakness,Radiating Pain into Limb History of Falling (Recent or History of No ) Patient is completely paralyzed or No completely immobile Mental Status Oriented to own ability Is patient on oxygen? No Does patient have SAHU/SOB No Hx Sleep Apnea Yes CPAP/BIPAP use prescribed and used routinely Will Bring CPAP/BIPAP DOS Yes Currently Taking a Beta Jaylin No Can You Climb a Flight of Stairs Without Yes SOB Hx Chest Pain No Hx SOB No Hx Syncope or Dizziness No Anti-Coagulant Therapy No Has a Fence Installer No Cardiac Testing No Hx Pacemaker/ICD No Pacemaker Rep Required? No Diet Type At Home Regular dysphagia No Gastrointestinal Symptoms Reflux Urinary Catheter Present No Hx Urinary Self Catheterization No Diabetes No Hx Drug Resistant Organism No Presence of External or Internal Medical Yes: Cervical/lumbar hardware, Devices CPAP Have you had any close contact with No someone diagnosed with COVID-19? Marital Status Lives With spouse,children Prior Living Arrangements House Support System Spouse Does the Patient Have Assistance After Yes Surgery Patient Discharge Plan Description Return Home Comment Pt not advised on length of stay per surgeon Feels Safe in Current Environment Yes Been Physically Hurt or Threatened By a No Person in Current Environment Do you have thoughts of harming yourself None or others? Are you currently considering suicide? No Do you have a plan to hurt yourself or No Plan others? Do You Have Any Spiritual Beliefs That No May Affect Your HC Choices? Do You Have Any Cultural Practices That No May Affect Your HC Choices? Who Can We Speak to About Patient's Care Family, friends Identifying Code for Release of Patient Declines to issue Information Health Care Proxy/Next of Kin Lenora () Health Care Proxy Emergency Contact Name Lenora () Emergency Contact Advance Directives? No Power of Masonry Supervisor No PAC Instructions Bring CPAP/BIPAP,Durable medical equipment,Medications to take/avoid,Nasal antibiotic ,No ETOH/petroleum product on skin DOS,NPO,Pre-surgical wash ,Sturdy shoes/comfortable clothes,Do not bring valuables and remove jewelry
--- NOTE | 2021-04-10 14:01 | PT.IPTN ---
Current Diagnoses Unspecified fracture of unspecified lumbar vertebra, subsequent encounter for fracture with nonunion (04/09/21) Other mechanical complication of other internal orthopedic devices, implants and grafts, initial encounter (04/09/21) Arthrodesis status (04/09/21) Surgery Performed Operation Date: 04/09/21 12:15 Actual Procedures p L3-4 TLIF, L4-S1 lumbar HWR, exploration of fusion, repeat laminectomy, reinsertion of hardware - Anabell Nix MD Physical Therapy Treatment Note M2 PT-IP Current Condition Start: 04/10/21 12:42 Freq: NEEDED Status: Active Protocol: Document 04/10/21 10:05 [facility] (Rec: 04/10/21 12:54 [facility] [id number]) Physical Therapy Current Condition Current Condition Evaluation Date 04/10/21 Treatment Diagnosis s/p L3-4, L4-5, L5S1 fusion; L3-S1 instrumentation; difficulty in walking Onset Date 04/09/21 Precautions Lumbar Precautions Log Roll,No Twisting,Limit Bending,Lifting Restriction of 10 lbs,Gait Belt above Incisional Area M3 PT-IP Subjective Start: 04/10/21 12:42 Freq: NEEDED Status: Active Protocol: Document 04/10/21 13:35 [facility] (Rec: 04/10/21 15:09 [facility] [id number]) Subjective Physical Therapy Visit Type Type Treatment Note Visit Start Time 13:35 Visit Stop Time 14:01 Total Visit Minutes 26 Number of INJECTOR ASSEMBLER Visits 1 Physical Therapy Visit Comments Patient Comments c/o increase back pain Therapy Pain Assessment Pain When Pain Assessed At Rest Pain Present Pain Present Pain Reported Location low back Intensity 8 Scale Used Numeric (0 - 10) Pain Behaviors Guarding,Holding Area, Restlessness,Wincing Pain Management Techniques Apply Cold,Re-positioning M4 PT-IP Mobility and Gait Start: 04/10/21 12:42 Freq: NEEDED Status: Active Protocol: Document 04/10/21 13:35 [facility] (Rec: 04/10/21 15:09 [facility] [id number]) PT-Bed Mobility Assessment Rolling Type of Rolling Log Rolling,Roll to Left Level of Assist Contact Guard Assistance Supine to Sit Supine to Sit Moderate Assistance,1 Person Assistance,Head of Bed Elevated,Bedrails Scooting Scooting to Edge of Bed Contact Guard Assistance PT-Transfer Assessment Sit to and From Stand Sit to and from Stand Minimal Assistance,1 Person Assistance,Use of Upper Extremities Equipment Transfer Assistive Device Gait Belt,Front Wheeled Walker Transfers Transfer Destination Bed Transfer Technique pt ambulated w/ FWW Transfer Ability Level of Assist Contact Guard Assistance, Minimal Assistance,1 Person Assistance,Use of Upper Extremities Comments Mobility Comments Pt in bed upon arrival from therapy w/ in room. Pt CGA for logroll to L and Mod A for sidelying<>sit provided appropriately by pts . Pt then able to scoot to EOB CGA. Min A x1 for sit<>stand w/ FWW. Pt then ambulated ~80ft in hallway w/ CGA provided by pts . He returned to his room and bed Min A. Pt able to recall 3/3 precautions and pts able to provide appropriate cues and assistance throughout treatment. Gait Assessment Gait Gait Assistance Required: Contact Guard Assist,1 Person Assist Distance (Feet) 80 Able to Maintain Weight Bearing Status Yes During Gait Assistive Devices Assistive Device Gait Belt,Front Wheeled Walker Orthotic/Prosthetic Devices or Brace: No Gait Deviations General Gait Pattern Decreased Stride Length, Decreased Feet Clearance Factors Limiting Gait Function Factors Limiting Gait Function Pain,Poor Balance Comments Gait Comments Pt ambulated ~80 ft w/ FWW and CGA provided safely by pts . Pt ambulated w/ decreased stride and foot clearance due to pain. Pt states he has 4WW at home, will need to practive w/ 4WW prior to d/c. Stair Climbing Assessment Comments Stair Climbing Comments not assessed PT-Balance Assessment Sitting Balance and Reactions Static Sitting Balance Ability Good Dynamic Sitting Balance Ability Good Standing Balance and Reactions Static Standing Balance Ability Fair Dynamic Standing Balance Ability Fair Device Used FWW M5 PT-IP Objective Assessments Start: 04/10/21 12:42 Freq: NEEDED Status: Active Protocol: Document 04/10/21 10:05 [facility] (Rec: 04/10/21 12:54 [facility] [id number]) Orientation Orientation/Cognition Level of Alertness Alert Orientation Name,Age,Birthday,Month,Date, Year,Day of Week,Place, Situation Language Function Ability No Deficits Noted Safety Awareness Decreased Safety Awareness Memory Description No Deficits Noted Gross Range of Motion Lower Extremity ROM Assessment Within Functional Limits Strength Lower Extremity Strength Assessment Bilaterally Impaired Hip 3+/5 Knee 3+/5 Sensation Assessment Sensation Sensation Description Tingling Comments Sensation Comments B quads Muscle Tone Muscle Tone WNL Yes M6 PT-IP Treatment Start: 04/10/21 12:42 Freq: NEEDED Status: Active Protocol: Document 04/10/21 13:35 [facility] (Rec: 04/10/21 15:09 [facility] [id number]) Physical Therapy Treatment Education Education Provided Precautions,Weight Bearing Status,Safety M7 PT-IP Assessment and Plan Start: 04/10/21 12:42 Freq: NEEDED Status: Active Protocol: Document 04/10/21 13:35 [facility] (Rec: 04/10/21 15:09 [facility] [id number]) PT Summary Assessment and Plan Potential Rehabilitation Potential Good Status of Condition at Evaluation Evolving Summary Impairments Pain,ROM,Strength,Balance, Coordination,Sensation,Tone, Cognition,Bed Mobility, Transfers,Gait,Activity Tolerance Progress Towards Goals Progressing Toward Goals,Slow Progress due to Pain Assessment Summary Pt able to tolerate further ambulation this afternoon, however remains limited due to reported high level of pain. Pts was able to provide appropriate assist for bed mobility, transfers, and ambulation as she is familiar from pts surgery last year. Pt able to recall all precautions and complete logroll safely. Will need to practive ambulating w/ 4WW and ascending/descending 2 steps prior to d/c. Goals Bed Mobility Goal Standby Assistance Transfer Goal Standby Assistance,Front Wheeled Walker,Four Wheeled Walker Gait Goal Standby Assistance,Front Wheel Walker,Four Wheel Walker Gait Distance 150 Other Goals up/down 2 steps L rail ascending SBA, ambulation w/ 4WW. (Pt has FWW if not safe w / 4WW but prefers 4WW) Days to Meet Goals 10 Frequency of Treatment Frequency Of Treatment Twice a Day Treatment Plan Physical Therapy Treatment Plan Bed Mobility Training,Transfer Training,Gait Training, Therapeutic Exercise,Balance Retraining,Post Op Education, Discharge Planning,Hot or Cold Pack,Neuromuscular Re-ed, Coordination Retraining,Manual Therapy Precautions Lumbar Precautions Log Roll,No Twisting,Limit Bending,Lifting Restriction of 10 lbs,Gait Belt above Incisional Area Recommendations To Nursing Amount of Assist Needed 1 Person Assist Discharge Recommendations PT Discharge Recommendations Home with Assistance Transportation Needs at Discharge Private Vehicle
[2021-04-10] MEDS: ZOLPIDEM 5 MG TABLET PO (19:00)
[2021-04-10] MEDS: OXYCODONE ER 10 MG TAB PO (20:48)
[2021-04-10] MEDS: SENNOSIDES 8.6 MG TABLET 17.2 MG PO (20:48)
[2021-04-11] MEDS: HYDROMORPHONE 2 MG TABLET PO ×2 (03:07→08:26)
[2021-04-11] MEDS: diazePAM 5 MG TABLET PO ×2 (03:07→09:35)
[2021-04-11] MEDS: SODIUM CHLORIDE 0.9% FLUSH 10 ML IV ×3 (04:48→21:26)
[2021-04-11] MEDS: HYDROMORPHONE 0.5 MG INJ IV ×2 (04:48→08:37)
[2021-04-11 06:00] VITALS: BP 122/61; PULSE 85; RESP 16; TEMP 37.1; O2SAT 98
[2021-04-11] MEDS: OXYCODONE IR 5 MG TABLET 10 MG PO ×2 (06:02→09:35)
[2021-04-11 07:55] VITALS: BP 118/71; PULSE 83; RESP 20; TEMP 36.3; O2SAT 95
[2021-04-11] MEDS: DOCUSATE 100 MG CAPSULE PO ×2 (08:25→21:25)
[2021-04-11] MEDS: OXYCODONE ER 10 MG TAB PO (08:25)
[2021-04-11] MEDS: ACETAMINOPHEN 325 MG TABLET 650 MG PO ×2 (08:25→17:55)
[2021-04-11] MEDS: lisinopriL 20 MG TABLET 40 MG PO (08:25)
[2021-04-11] MEDS: hydrOXYzine pamoate 25 MG CAPSULE PO ×3 (08:26→16:52)
[2021-04-11] MEDS: MAGNESIUM HYDROXIDE 30 ML UDC PO (08:37)
--- NOTE | 2021-04-11 09:02 | OT.IPNOTE ---
Touched base with pt regarding OT eval as pt refused yesterday due to just had back sx prior last year and feels he and his are capable to do all his ADL needs. Therefore discharge OT eval orders.
--- NOTE | 2021-04-11 10:31 | PT.IPTN ---
Current Diagnoses Unspecified fracture of unspecified lumbar vertebra, subsequent encounter for fracture with nonunion (04/09/21) Other mechanical complication of other internal orthopedic devices, implants and grafts, initial encounter (04/09/21) Arthrodesis status (04/09/21) Surgery Performed Operation Date: 04/09/21 12:15 Actual Procedures p L3-4 TLIF, L4-S1 lumbar HWR, exploration of fusion, repeat laminectomy, reinsertion of hardware - Anabell Nix MD Physical Therapy Treatment Note M2 PT-IP Current Condition Start: 04/10/21 12:42 Freq: NEEDED Status: Active Protocol: Document 04/10/21 10:05 [facility] (Rec: 04/10/21 12:54 [facility] [id number]) Physical Therapy Current Condition Current Condition Evaluation Date 04/10/21 Treatment Diagnosis s/p L3-4, L4-5, L5S1 fusion; L3-S1 instrumentation; difficulty in walking Onset Date 04/09/21 Precautions Lumbar Precautions Log Roll,No Twisting,Limit Bending,Lifting Restriction of 10 lbs,Gait Belt above Incisional Area M3 PT-IP Subjective Start: 04/10/21 12:42 Freq: NEEDED Status: Active Protocol: Document 04/11/21 10:07 SP (Rec: 04/11/21 12:59 SP [id number]) Subjective Physical Therapy Visit Type Type Treatment Note Visit Start Time 10:07 Visit Stop Time 10:31 Total Visit Minutes 24 Notes in room completed caregiver training and provided physical assist required throughout tx. Number of IVORY POLISHER Visits 2 Physical Therapy Visit Comments Patient Comments c/o increased back pain 8/10 premedicated willing to work with therapy. Patient Goals return home with to assist him when pain more controlled and more stable on BLE. Therapy Pain Assessment Pain When Pain Assessed At Rest Pain Present Pain Present Pain Reported Location low back Intensity 7 Scale Used 8/10 at rest and during mobility Pain Behaviors Facial Grimacing,Guarding, Moaning,Restlessness Pain Management Techniques Apply Cold,Distraction,Re- positioning,Timing of Activity with Medications M4 PT-IP Mobility and Gait Start: 04/10/21 12:42 Freq: NEEDED Status: Active Protocol: Document 04/11/21 10:07 SP (Rec: 04/11/21 12:59 SP [id number]) PT-Transfer Assessment Sit to and From Stand Sit to and from Stand Minimal Assistance,1 Person Assistance,Use of Upper Extremities Equipment Transfer Assistive Device Gait Belt,Front Wheeled Walker Orthotic/Prosthetic Devices or Brace: No Transfers Transfer Destination Chair Transfer Technique pt ambulated w/ FWW Transfer Ability Level of Assist Contact Guard Assistance,1 Person Assistance,Use of Upper Extremities Comments Mobility Comments Sit<> stand Min A x1 with heavy BUE WB on chair arms, cued quad facilitation coming to standing. Pt ambulated further distance to stairs and back to room chair using FWW CGA-5%A decreased strength in stride, see gait comments. Completed stairs Mod A x1. CGA - Min A slow descent into chair when returned to room. Pt had call light and all needs in reach with in room before left. Gait Assessment Gait Gait Assistance Required: Contact Guard Assist,1 Person Assist Distance (Feet) 160 Able to Maintain Weight Bearing Status Yes During Gait Assistive Devices Assistive Device Gait Belt,Front Wheeled Walker Orthotic/Prosthetic Devices or Brace: No Gait Deviations General Gait Pattern Antalgic,Decreased Stride Length,Decreased Feet Clearance,Step-to Gait,Wide Based Gait Factors Limiting Gait Function Factors Limiting Gait Function Decreased Activity Tolerance, Decreased Strength,Pain,Poor Balance Comments Gait Comments Pt ambulated 160 ft room chair to from stairs using FWW with 5 stopped stand rests, decreased foot clearance and RLE stability midstance, decreased toe off strength, noted R hip hike and knee flexion for advancement satep to patterning with heavy BUE WB on FWW, CGA- 5% A. Stair Climbing Assessment Evaluation Level of Assist On Stairs Minimal Assistance,Moderate Assistance,1 Person Assistance Devices Stair Climbing Assistive Devices Left Railing,Right Railing Technique/Endurance Stair Climbing Direction Ascend and Descend Stair Climbing Technique Step to Step Number of Steps Climbed 3 Stair Climbing Set # Repetitions (reps) 1 Comments Stair Climbing Comments Ascend/ descend 3 stairs Mod A x1, cued for upright and downward pressure on hand rails step to patterning lead LLE ascend going forward (has SPC will use at home on R), side stepping L lead descend CG- Min A, no LOB. PT-Balance Assessment Sitting Balance and Reactions Static Sitting Balance Ability Good Dynamic Sitting Balance Ability Good Standing Balance and Reactions Static Standing Balance Ability Fair Dynamic Standing Balance Ability Fair Device Used FWW M5 PT-IP Objective Assessments Start: 04/10/21 12:42 Freq: NEEDED Status: Active Protocol: Document 04/10/21 10:05 AB (Rec: 04/10/21 12:54 [facility] [id number]) Orientation Orientation/Cognition Level of Alertness Alert Orientation Name,Age,Birthday,Month,Date, Year,Day of Week,Place, Situation Language Function Ability No Deficits Noted Safety Awareness Decreased Safety Awareness Memory Description No Deficits Noted Gross Range of Motion Lower Extremity ROM Assessment Within Functional Limits Strength Lower Extremity Strength Assessment Bilaterally Impaired Hip 3+/5 Knee 3+/5 Sensation Assessment Sensation Sensation Description Tingling Comments Sensation Comments B quads Muscle Tone Muscle Tone WNL Yes M6 PT-IP Treatment Start: 04/10/21 12:42 Freq: NEEDED Status: Active Protocol: Document 04/11/21 10:07 SP (Rec: 04/11/21 12:59 SP [id number]) Physical Therapy Treatment Education Education Provided Precautions,Weight Bearing Status,Safety M7 PT-IP Assessment and Plan Start: 04/10/21 12:42 Freq: NEEDED Status: Active Protocol: Document 04/11/21 10:07 SP (Rec: 04/11/21 12:59 SP [id number]) PT Summary Assessment and Plan Potential Rehabilitation Potential Good Status of Condition at Evaluation Evolving Summary Impairments Pain,ROM,Strength,Balance, Coordination,Sensation,Tone, Cognition,Bed Mobility, Transfers,Gait,Activity Tolerance Progress Towards Goals Progressing Toward Goals,Slow Progress due to Pain,Slow Progress due to Activity Tolerance Assessment Summary Pt declined bed mobiltiy due to increased pain premedicated . Chata for transfers, CGA- Chata during gait, Mod A during stair mgt. Pt continues limited do to reported jethro pain level 8/10 premedicated. Pts was able to provide appropriate assist for transfers, ambulation and stair mgt as she is familiar from pts surgery last year. Continue to assess progress during pm tx. Goals Bed Mobility Goal Standby Assistance Transfer Goal Standby Assistance,Front Wheeled Walker,Four Wheeled Walker Gait Goal Standby Assistance,Front Wheel Walker,Four Wheel Walker Gait Distance 150 Other Goals up/down 2 steps L rail ascending SBA, ambulation w/ 4WW. (Pt has FWW if not safe w / 4WW but prefers 4WW) Days to Meet Goals 10 Frequency of Treatment Frequency Of Treatment Twice a Day Treatment Plan Physical Therapy Treatment Plan Bed Mobility Training,Transfer Training,Gait Training, Therapeutic Exercise,Balance Retraining,Post Op Education, Discharge Planning,Hot or Cold Pack,Neuromuscular Re-ed, Coordination Retraining,Manual Therapy Other Recommendations and Next Treatment Gait using FWW, review bed Focus mobility. Precautions Lumbar Precautions Log Roll,No Twisting,Limit Bending,Lifting Restriction of 10 lbs,Gait Belt above Incisional Area Recommendations To Nursing Amount of Assist Needed 1 Person Assist Discharge Recommendations PT Discharge Recommendations Home with Assistance Equipment Needed for Home Before FWW if not safe with 4WW Discharge Transportation Needs at Discharge Private Vehicle
[2021-04-11 12:07] VITALS: BP 132/78; PULSE 76; RESP 16; TEMP 36.4; O2SAT 98
[2021-04-11] MEDS: HYDROMORPHONE 2 MG TABLET 4 MG PO ×4 (12:42→21:29)
--- NOTE | 2021-04-11 14:12 | PT.IPTN ---
Current Diagnoses Unspecified fracture of unspecified lumbar vertebra, subsequent encounter for fracture with nonunion (04/09/21) Other mechanical complication of other internal orthopedic devices, implants and grafts, initial encounter (04/09/21) Arthrodesis status (04/09/21) Surgery Performed Operation Date: 04/09/21 12:15 Actual Procedures p L3-4 TLIF, L4-S1 lumbar HWR, exploration of fusion, repeat laminectomy, reinsertion of hardware - Anabell Nix MD Physical Therapy Treatment Note M2 PT-IP Current Condition Start: 04/10/21 12:42 Freq: NEEDED Status: Active Protocol: Document 04/11/21 13:57 SP (Rec: 04/11/21 14:34 SP [id number]) Physical Therapy Current Condition Current Condition Evaluation Date 04/10/21 Treatment Diagnosis s/p L3-4, L4-5, L5S1 fusion; L3-S1 instrumentation; difficulty in walking Onset Date 04/09/21 Precautions Lumbar Precautions Log Roll,No Twisting,Limit Bending,Lifting Restriction of 10 lbs,Gait Belt above Incisional Area M3 PT-IP Subjective Start: 04/10/21 12:42 Freq: NEEDED Status: Active Protocol: Document 04/11/21 13:57 SP (Rec: 04/11/21 14:34 SP [id number]) Subjective Physical Therapy Visit Type Type Treatment Note Visit Start Time 13:57 Visit Stop Time 14:12 Total Visit Minutes 15 Notes in room continues be able to provided assist pt requires and safety use of gait belt for mobility. 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 Therapy Pain Assessment Pain When Pain Assessed At Rest Pain Present Pain Present Pain Reported Location low back Intensity 8 Scale Used 8/10 at rest and during mobility Pain Behaviors Facial Grimacing,Guarding, Moaning,Restlessness Pain Management Techniques Distraction,Re-positioning, Timing of Activity with Medications M4 PT-IP Mobility and Gait Start: 04/10/21 12:42 Freq: NEEDED Status: Active Protocol: Document 04/11/21 13:57 SP (Rec: 04/11/21 14:34 SP [id number]) PT-Bed Mobility Assessment Rolling Type of Rolling Log Rolling,Bilateral Level of Assist Minimal Assistance,1 Person Assistance Supine to Sit Supine to Sit Minimal Assistance,Moderate Assistance,1 Person Assistance ,Bedrails Sit to Supine Sit to Supine Minimal Assistance,1 Person Assistance,Bedrails Scooting Scooting to Edge of Bed Standby Assistance PT-Transfer Assessment Sit to and From Stand Sit to and from Stand Standby Assistance,Contact Guard Assistance,1 Person Assistance,Use of Upper Extremities Equipment Transfer Assistive Device Gait Belt,Front Wheeled Walker Orthotic/Prosthetic Devices or Brace: No Transfers Transfer Destination Bed,Chair Transfer Technique pt ambulated w/ FWW Transfer Ability Level of Assist Standby Assistance,Contact Guard Assistance,1 Person Assistance,Use of Upper Extremities Comments Mobility Comments Pt seated in chair when arrived, commented just used bathroom recently with CG -SBA. Scoot and sit>stand CG- SBA from chair with heavy WB on chair arms, improved quad facilitation coming to standing this pm. Ambulated in to hallway step over step Moderate BUE WB on fWW, 4 stopped stand brief stand rests with WBOS stance. Pt reports pain/ achiness in proximal B glut max, glut med, B TFL and B quad tiring with a need stop stand into hip thrust forward stack LE jts into locked hip/ knee extension to allow muscles to recovery. Pt returned to bed sBA descent to sit. Sit<> supine Min A for LE support into bed and posterior scoot back while on L side then LR R CG- M in Min A for upper body center bed. LR L, LE to EOB self SBA transition L SL>sit Min A by , education for FWW side of bed for self support push right trunk to sit with upper body support and cues for TA facilitation, pt and stated was helpful and decreased support required. Pt requested to stay sitting at EOB due to felt more comfortable. Pt had call light and all needs in reach with in room to assist him before left. Gait Assessment Gait Gait Assistance Required: Standby Assistance,1 Person Assist Distance (Feet) 90 Able to Maintain Weight Bearing Status Yes During Gait Assistive Devices Assistive Device Gait Belt,Front Wheeled Walker Orthotic/Prosthetic Devices or Brace: No Gait Deviations General Gait Pattern Antalgic,Decreased Stride Length,Decreased Feet Clearance,Wide Based Gait Factors Limiting Gait Function Factors Limiting Gait Function Decreased Activity Tolerance, Decreased Strength,Pain,Poor Balance Comments Gait Comments see mobility comments. PT-Balance Assessment Sitting Balance and Reactions Static Sitting Balance Ability Good Dynamic Sitting Balance Ability Good Standing Balance and Reactions Static Standing Balance Ability Fair Dynamic Standing Balance Ability Fair Device Used FWW M5 PT-IP Objective Assessments Start: 04/10/21 12:42 Freq: NEEDED Status: Active Protocol: Document 04/10/21 10:05 AB (Rec: 04/10/21 12:54 AB [id number]) Orientation Orientation/Cognition Level of Alertness Alert Orientation Name,Age,Birthday,Month,Date, Year,Day of Week,Place, Situation Language Function Ability No Deficits Noted Safety Awareness Decreased Safety Awareness Memory Description No Deficits Noted Gross Range of Motion Lower Extremity ROM Assessment Within Functional Limits Strength Lower Extremity Strength Assessment Bilaterally Impaired Hip 3+/5 Knee 3+/5 Sensation Assessment Sensation Sensation Description Tingling Comments Sensation Comments B quads Muscle Tone Muscle Tone WNL Yes M6 PT-IP Treatment Start: 04/10/21 12:42 Freq: NEEDED Status: Active Protocol: Document 04/11/21 13:57 SP (Rec: 04/11/21 14:34 SP [id number]) Physical Therapy Treatment Education Education Provided Precautions,Weight Bearing Status,Safety M7 PT-IP Assessment and Plan Start: 04/10/21 12:42 Freq: NEEDED Status: Active Protocol: Document 04/11/21 13:57 SP (Rec: 04/11/21 14:34 SP [id number]) PT Summary Assessment and Plan Potential Rehabilitation Potential Good Status of Condition at Evaluation Evolving Summary Impairments Pain,ROM,Strength,Balance, Coordination,Sensation,Tone, Cognition,Bed Mobility, Transfers,Gait,Activity Tolerance Progress Towards Goals Progressing Toward Goals,Slow Progress due to Pain,Slow Progress due to Activity Tolerance Assessment Summary Bed mobility Min A for LE assist and trunk righting, CG- SBA sit<>stand, SPT and gait close SBA using fWW, improved quad facilitation during gait and step over step patterning, Mod UE WB on FWW during gait due to pain and decreased strength. Pt would benefit from continued skilled therapy for LE strengthening and functional mobility another am tx. Will continue to assess progress. Goals Bed Mobility Goal Standby Assistance Transfer Goal Standby Assistance,Front Wheeled Walker,Four Wheeled Walker Gait Goal Standby Assistance,Front Wheel Walker,Four Wheel Walker Gait Distance 150 Other Goals up/down 2 steps L rail ascending SBA, ambulation w/ 4WW. (Pt has FWW if not safe w / 4WW but prefers 4WW) Days to Meet Goals 10 Frequency of Treatment Frequency Of Treatment Twice a Day Treatment Plan Physical Therapy Treatment Plan Bed Mobility Training,Transfer Training,Gait Training, Therapeutic Exercise,Balance Retraining,Post Op Education, Discharge Planning,Hot or Cold Pack,Neuromuscular Re-ed, Coordination Retraining,Manual Therapy Other Recommendations and Next Treatment Gait using FWW. Focus Precautions Lumbar Precautions Log Roll,No Twisting,Limit Bending,Lifting Restriction of 10 lbs,Gait Belt above Incisional Area Recommendations To Nursing Amount of Assist Needed 1 Person Assist Discharge Recommendations PT Discharge Recommendations Home with Assistance Equipment Needed for Home Before FWW if not safe with 4WW Discharge Transportation Needs at Discharge Private Vehicle
[2021-04-11] MEDS: OXYCODONE ER 10 MG TAB 20 MG PO ×2 (14:28→21:25)
--- NOTE | 2021-04-11 14:39 | PM.PNPO.1 ---
Subjective Subjective Date Patient Seen: 04/11/21 Time Patient Seen: 14:41 Interval history: the patient is complaining of moderate to severe pain. He and I had a long conversation about his postoperative pain from his last surgery approximately a year ago. The patient is dissatisfied and notes he shakes for the pain towards the end of his dosing frequency. He refused to have his catheter removed today. He is requesting for stronger pain medications, but agrees he would like to try to avoid a fentanyl patch, which was used on his last surgery. He also notes he has new onset of bilateral lateral thigh numbness. No nausea or vomiting. No fevers, chills, night sweats. His is at bedside as well. Exam Vital Signs (past 8 hours): - 04/11/21 07:55 04/11/21 12:07 Temperature 97.3 F L 97.6 F Pulse Rate 83 76 Respiratory Rate 20 16 Blood Pressure 118/71 132/78 Pulse Oximetry 95 98 Oxygen Delivery Method Room Air Oxygen Flow Rate 0 Narrative Exam Narrative: somewhat hostile 51-year-old male, resting comfortably in his chair, no acute distress. Low back dressing is clean, dry, intact. Bilateral calves are soft, nontender to palpation. Bilateral lower extremity motor functions are grossly intact. The patient is complaining of decreased lateral thigh sensation bilaterally. Objective Labs Result Diagrams: 04/10/21 07:20 [facility] Medical History Arthritis HTN (hypertension) FELICITA on CPAP Sciatica Surgical History History of carpal tunnel release of both wrists (2018) History of lumbar spinal fusion (01/10/20) Hx of hernia repair (~01/2021) S/P cervical spinal fusion (2009) Social History household members: spouse and children Smoking Status: Never smoker alcohol intake: former Assessment & Plan Post-op Postoperative Procedures: Procedures Operation Date: 04/09/21 12:15 Actual Procedure Side Surgeon p L3-4 TLIF, L4-S1 lumbar HWR, exploration of fusion, repeat laminectomy, reinsertion of hardware Anabell Nix MD Postoperative status: marginal pain control Postoperative status narrative: Stable status post lumbar hardware removal with revision fusion Postoperative plan narrative: The patient, his , and I had a very long discussion today about the risks and benefits of significantly increasing his pain medications. He notes he has very poor pain control currently, and he is very dissatisfied with his current pain management. I discussed the current regimen and changes with Dr. Nix. We will change the majority of his narcotic pain medications to scheduled instead of prn. We will increase his p.o. Dilaudid from 2 mg to 4 mg. Increased his long-acting oxycodone from 10 mg Q 8 hours to 20 mg Q 8 hours. We also increased his Valium from 5 mg to 10 mg as he notes this helped significantly during his last postoperative recovery in December of 2019. He and his have verbalized multiple times that they understand the risks of increasing his narcotics, especially once he is ready to go home. -mobilize with PT. Limit bending, lifting, twisting. -remove urinary catheter -Likely DC home tomorrow due to marginal pain control. Quality VTE Deep Vein Thrombosis/Pulmonary Embolism Present on Admission: No
[2021-04-11 15:20] VITALS: BP 133/71; PULSE 93; RESP 19; TEMP 37.3; O2SAT 97
--- NOTE | 2021-04-11 17:22 | PC.NURSE ---
Addendum entered by Emily Metz R.N. 04/11/21 22:57: Has remained up ad tony in room much of shift. Assessed as safe on feet after observing pt with walker in room. Pt does not choose to call staff for assistance. Has refused ice to back this shift. Scant shadowy drainage observed to right lateral coversite dressing to back. Rates pain consistently 7/10, but has not requested additional pain medications other than what is ordered and recorded on emar this evening shift. Original Note: [employer] approaches staff @ beginning of shift stating pt requesting pain medications. Entered pt's room and pt sitting up in recliner. Able to move all extremities independently but admits to numbness right lateral thighs BL s/p surgery. States has discussed with provider. Pt given oral dilaudid as per emar. Discussion with pt and pt's S.O. who is present in room re attempting to avoid iv pain meds in preparation for discharge home. Zamudio catheter draining clear, yellow urine. Coversite dressings x 2 intact to back. Equally warm and pink extremities. Discussion with pt and pt's S.O, who is present in room, requesting pt to call for staff assistance when desiring/needing to move from chair to bed and vice versa. Pt does not agree to call for assistance. Reviewed with pt and pt's S.O. staff do not desire for pt to fall during this hospital stay and would like for pt to please call for assistance. Pt's response, I'll try.
[2021-04-11] MEDS: diazePAM 5 MG TABLET 10 MG PO (17:54)
[2021-04-11 20:14] VITALS: BP 143/84; PULSE 86; RESP 18; TEMP 36.8; O2SAT 98
[2021-04-11] MEDS: SENNOSIDES 8.6 MG TABLET 17.2 MG PO (21:24)
[2021-04-12] VITALS: BP 147/92; PULSE 85; RESP 18; TEMP 36.7; O2SAT 96
[2021-04-12] MEDS: ZOLPIDEM 5 MG TABLET PO (00:05)
[2021-04-12] MEDS: diazePAM 5 MG TABLET 10 MG PO ×3 (00:05→11:49)
[2021-04-12] MEDS: ACETAMINOPHEN 325 MG TABLET 650 MG PO ×3 (00:06→11:48)
[2021-04-12] MEDS: HYDROMORPHONE 2 MG TABLET 4 MG PO ×4 (01:08→11:49)
[2021-04-12] MEDS: hydrOXYzine pamoate 25 MG CAPSULE PO ×3 (01:09→08:42)
[2021-04-12 04:13] VITALS: BP 147/88; PULSE 82; RESP 18; TEMP 36.7; O2SAT 95
[2021-04-12 07:10] VITALS: BP 132/83; PULSE 77; RESP 16; TEMP 36.6; O2SAT 99
--- NOTE | 2021-04-12 07:25 | P.DS_ITS ---
History of Present Illness History of Present Illness Date Patient Seen: 04/12/21 Time Patient Seen: 07:25 Chief complaint: Low back pain status post lumbar revision/fusion Narrative: The patient is complaining of moderate to severe low back pain this morning. He notes the change in pain medications has been helpful. He is very concerned about getting his long-acting oxy every 8 hours as opposed to every 12 hours. Denies any new nausea or vomiting. No fevers, chills, night sweats. He would like to be discharged home today. Discharge Providers Provider Date of admission: 04/09/21 10:53 Discharge Date: 04/12/21 Primary care physician: Doctor Hallie MD Consults: 04/09/21 11:13 Consult to Respiratory Therapy Evaluate & Treat Comment: Physician Instructions: Evaluate and treat 04/09/21 18:09 Consult to Respiratory Therapy Evaluate & Treat Comment: FELICITA/CPAP; s/p Lami Redo and TLIF Physician Instructions: Evaluate and treat 04/09/21 18:40 Consult to Occupational Therapy Evaluate & Treat Comment: Physician Instructions: Evaluate and treat Consult to Physical Therapy Evaluate & Treat Comment: Physician Instructions: Evaluate and Treat Consult to Respiratory Therapy Evaluate & Treat Comment: Physician Instructions: Evaluate and treat Discharge provider: Karen Fontanez PA-C Summary Hospital Course Discharge Diagnosis: 1. Lumbar hardware failure with history of L4-S1 fusion 2. Lumbar L3-4 spinal stenosis with radiculopathy 3. Marginal pain management Hospital Course: Procedure: 1. L3-4 posterolateral and posterior interbody fusion 2. L3-4? posterior interbody cage placement 3. L4-5, L5-S1 posterior non-segmental instrumentation removal 4. L4-5, L5-S1 revision laminectomy with exploration of fusion 5. L3-4, L4-5, L5-S1 posterior segmental instrumentation with pedicle screw plac ement 6. L4-5 posterolatearl fusion 7. [place] of bone marrow from iliac crest through a separate incision 8. Utilization of microsurgical technique and operating microscope Same procedure as scheduled: Yes Indications: Patient has been having worsening back pain with history of lumbar fusion.? Patient's x-ray and CT showed broken fusion jerrell on the left side of his spinal hardware. Patient failed multiple conservative management with worsening pain weakness and numbness in her lower extremity.? Patient has been having difficulty performing activity of daily living.? After discussing risks benefits of treatment options, patient elected proceed with surgery. Surgeon: Anabell Nix Plumbing And Heating Mechanic: Karen oFntanez Click Yes if Unassisted: No Anesthesia Type: General Operative Notes Closure Type: primary Specimen(s): none sent Prosthetic devices, grafts, tissues, transplants, or devices: Globus revolve screws, Rise cage Applied: catheter Estimated Blood Loss (mL): 150 Blood products transfused: none Status at Discharge Cognitive/behavioral status at discharge: oriented Functional status at discharge: uses cane/walker Overall status at discharge: patient is progressing back to baseline Exam Vital Signs (past 8 hours): - 04/12/21 00:00 04/12/21 04:13 Temperature 98.0 F 98.0 F Pulse Rate 85 82 Respiratory Rate 18 18 Blood Pressure 147/92 H 147/88 H Pulse Oximetry 96 95 Oxygen Delivery Method Room Air Oxygen Flow Rate 0 Narrative Exam Narrative: 51-year-old male, resting comfortably in his chair, no acute distress. Bilateral lower extremity motor functions are grossly intact. He still notes decreased sensation and bilateral lateral thighs. Bilateral calves are soft, nontender to palpation. Dressing is clean, dry, intact. Objective Labs Result Diagrams: 04/10/21 07:20 [facility] Medical History Arthritis HTN (hypertension) FELICITA on CPAP Sciatica Surgical History History of carpal tunnel release of both wrists (2018) History of lumbar spinal fusion (01/10/20) Hx of hernia repair (~01/2021) S/P cervical spinal fusion (2009) Social History household members: spouse and children Smoking Status: Never smoker alcohol intake: former Discharge Assessment & Plan Assessment and Plan Assessment: Stable status post lumbar revision/fusion. Marginal pain control. Plan of Treatment: Mobilize with PT. Limit bending, lifting, twisting. Weightbearing as tolerated with front wheel walker. -the patient and I have had multiple discussions about narcotic use. He understands the risks versus benefits. He had difficulty with pain control at his last postoperative visit and was given a fentanyl patch. We are doing our best to avoid a fentanyl patch at this time. -remove Zamudio -DC home when cleared by PT and voiding. -follow-up with Dr. Nix in 10-14 days for postoperative visit Discharge Plan Discharge Plan Patient Disposition: Home Discharge orders & Medications Prescriptions: New acetaminophen 500 mg capsule 500 mg PO Q4H MDD Max 6 tabs per day PRN (Reason: Mild pain) Qty: 90 RF: 0 diazepam 10 mg tablet 10 mg PO Q6HR PRN (Reason: muscle spasm) Qty: 60 RF: 0 docusate sodium 100 mg Capsule 100 mg PO BID PRN (Reason: Constipation from the narcotic pain meds) Qty: 60 RF: 0 zolpidem 5 mg Tablet 5 mg PO BEDTIME PRN (Reason: insomnia) Qty: 30 RF: 0 hydroxyzine pamoate 25 mg Capsule 25 mg PO Q4HR PRN (Reason: agitation, spasms, nausea) Qty: 60 RF: 0 hydromorphone 2 mg Tablet 4 mg PO Q3H PRN (Reason: Pain, Severe (7-10)) Qty: 60 RF: 0 oxycodone [OxyContin] 10 mg Tablet,Oral Only,Ext.Rel.12 Hr 20 mg PO TID PRN (Reason: Severe pain) Qty: 42 RF: 0 Narcan 4 mg/actuation spray,non-aerosol 4 mg intranasal Q2M PRN (Reason: opioid overdose) Qty: 2 RF: 0 Continued lisinopril 40 mg Tablet 40 mg PO DAILY RF: 0 Follow up/Referrals: Anabell Nix MD [Physician] - (10-14 days for postoperative visit) Doctor Sterling MD [Primary Care Provider] - Diet/Activity/Treatments Diet: Diet as Tolerated and Regular Activity: Limit bending, lifting, twisting. Weightbearing as tolerated with front wheeled walker. Cold/Heat Therapy: Use ice as needed for pain Skin/Wound/Dressing Care Report to your healthcare provider any signs of infection, such as:: chills, fever, night sweats, unusual drainage and unusual redness Dressing: Keep dressing dry. If dressing becomes wet, soiled, saturated, please call the office. Visit Report/Discharge Packet Instructions: DI for Prescription Opioid Use, DI for Transforaminal Lumbar Interbody Fusion Stand Alone Forms: Surgery Discharge Discharge Data Primary Care Provider: Doctor Hallie Attending Provider: Anabell Nix Quality VTE Deep Vein Thrombosis/Pulmonary Embolism Present on Admission: No
[2021-04-12] MEDS: DOCUSATE 100 MG CAPSULE PO (08:41)
[2021-04-12] MEDS: OXYCODONE ER 10 MG TAB 20 MG PO (08:42)
[2021-04-12] MEDS: lisinopriL 20 MG TABLET 40 MG PO (08:42)
[2021-04-12] MEDS: SODIUM CHLORIDE 0.9% FLUSH 10 ML IV (08:46)
--- NOTE | 2021-04-12 10:00 | PT.IPTN ---
Current Diagnoses Unspecified fracture of unspecified lumbar vertebra, subsequent encounter for fracture with nonunion (04/09/21) Other mechanical complication of other internal orthopedic devices, implants and grafts, initial encounter (04/09/21) Arthrodesis status (04/09/21) Surgery Performed Operation Date: 04/09/21 12:15 Actual Procedures p L3-4 TLIF, L4-S1 lumbar HWR, exploration of fusion, repeat laminectomy, reinsertion of hardware - Anabell Nix MD Physical Therapy Treatment Note M2 PT-IP Current Condition Start: 04/10/21 12:42 Freq: NEEDED Status: Active Protocol: Document 04/12/21 09:46 SP (Rec: 04/12/21 10:30 SP [id number]) Physical Therapy Current Condition Current Condition Evaluation Date 04/10/21 Treatment Diagnosis s/p L3-4, L4-5, L5S1 fusion; L3-S1 instrumentation; difficulty in walking Onset Date 04/09/21 M3 PT-IP Subjective Start: 04/10/21 12:42 Freq: NEEDED Status: Active Protocol: Document 04/12/21 09:46 SP (Rec: 04/12/21 10:30 SP [id number]) Subjective Physical Therapy Visit Type Type Treatment Note Visit Start Time 09:46 Visit Stop Time 10:00 Total Visit Minutes 14 Notes in room continues be able to provided assist pt requires and safety use of gait belt for mobility. Pt stated was a gap in pain meds last night and playing catch up this am, premedicated at 6 am and pain improving. Number of PSYCHOLOGICAL ASSISTANT Visits 4 Physical Therapy Visit Comments Patient Comments Pt willing to work with therapy, c/o back pain decreased to 5-6/10. Patient Goals Return home with to assist him Therapy Pain Assessment Pain When Pain Assessed During Mobility Pain Present Pain Present Pain Reported Location low back Intensity 5 Scale Used Numeric (0 - 10) Description With Movement Pain Behaviors Facial Grimacing,Guarding, Restlessness Pain Management Techniques Distraction,Re-positioning, Timing of Activity with Medications M4 PT-IP Mobility and Gait Start: 04/10/21 12:42 Freq: NEEDED Status: Active Protocol: Document 04/12/21 09:46 SP (Rec: 04/12/21 10:30 SP [id number]) PT-Bed Mobility Assessment Supine to Sit Supine to Sit Standby Assistance,Head of Bed Elevated Scooting Scooting to Edge of Bed Standby Assistance PT-Transfer Assessment Sit to and From Stand Sit to and from Stand Standby Assistance,Use of Upper Extremities Equipment Transfer Assistive Device Gait Belt,Front Wheeled Walker Orthotic/Prosthetic Devices or Brace: No Transfers Transfer Destination Bed Transfer Technique pt ambulated w/ FWW Transfer Ability Level of Assist Standby Assistance,Use of Upper Extremities Comments Mobility Comments Pt elevated sitting in bed when arrived. Completed elevated supine> sit>scoot EOB , sit>stand SBA using BUE decreased pain reported /10 but stated his pain last night was still pretty high was a gap in provided meds and playing catchup scheduled at 6 am and little better when arrived. Pt ambulated using FWW SBA bed to/ from stairs, SBA more continuous receiprocal stepping and more NBOS with reduced stop stand rests x2 on way to stairs and x1 on way back, completed 3 step stair mgt L HR cued downward pressure and more upright posture, step to patterning CGA, returned to sitting at EOB when in room. Pt had call light and all needs in reach with mk before left. PSYCHOLOGICAL ASSISTANT provided CP for assist pain mgt, pt declined at this time. Gait Assessment Gait Gait Assistance Required: Standby Assistance,1 Person Assist Distance (Feet) 160 Able to Maintain Weight Bearing Status Yes During Gait Assistive Devices Assistive Device Gait Belt,Front Wheeled Walker Orthotic/Prosthetic Devices or Brace: No Gait Deviations General Gait Pattern Antalgic,Decreased Stride Length Factors Limiting Gait Function Factors Limiting Gait Function Decreased Activity Tolerance, Decreased Strength,Pain Comments Gait Comments see mobility comments Stair Climbing Assessment Evaluation Level of Assist On Stairs Contact Guard Assistance,1 Person Assistance Devices Stair Climbing Assistive Devices Left Railing Technique/Endurance Stair Climbing Direction Ascend and Descend Stair Climbing Technique Step to Step Number of Steps Climbed 3 Stair Climbing Set # Repetitions (reps) 1 Comments Stair Climbing Comments Completed 3 step stair mgt ascend/descend side stepping step to patterning using L HR as has at home, CGA by . Cued for tall posture and downward pressure and modified pull with L hand on rail for improved back alignment and core facilitation. Good carryover. PT-Balance Assessment Sitting Balance and Reactions Static Sitting Balance Ability Good Dynamic Sitting Balance Ability Good Standing Balance and Reactions Static Standing Balance Ability Good Dynamic Standing Balance Ability Good Device Used FWW M5 PT-IP Objective Assessments Start: 04/10/21 12:42 Freq: NEEDED Status: Active Protocol: Document 04/10/21 10:05 AB (Rec: 04/10/21 12:54 AB [id number]) Orientation Orientation/Cognition Level of Alertness Alert Orientation Name,Age,Birthday,Month,Date, Year,Day of Week,Place, Situation Language Function Ability No Deficits Noted Safety Awareness Decreased Safety Awareness Memory Description No Deficits Noted Gross Range of Motion Lower Extremity ROM Assessment Within Functional Limits Strength Lower Extremity Strength Assessment Bilaterally Impaired Hip 3+/5 Knee 3+/5 Sensation Assessment Sensation Sensation Description Tingling Comments Sensation Comments B quads Muscle Tone Muscle Tone WNL Yes M6 PT-IP Treatment Start: 04/10/21 12:42 Freq: NEEDED Status: Active Protocol: Document 04/12/21 09:46 SP (Rec: 04/12/21 10:30 SP [id number]) Physical Therapy Treatment Education Education Provided Precautions,Weight Bearing Status,Safety M7 PT-IP Assessment and Plan Start: 04/10/21 12:42 Freq: NEEDED Status: Active Protocol: Document 04/12/21 09:46 SP (Rec: 04/12/21 10:30 SP [id number]) PT Summary Assessment and Plan Potential Rehabilitation Potential Good Status of Condition at Evaluation Evolving Summary Impairments Pain,ROM,Strength,Balance, Coordination,Sensation,Tone, Cognition,Bed Mobility, Transfers,Gait,Activity Tolerance Progress Towards Goals Progressing Toward Goals,Slow Progress due to Pain,Slow Progress due to Activity Tolerance Assessment Summary Improved SBA during transfers and gait, CGA during stair mgt side stepping with use of L HR. Improved quad facilitation BLE during gait and step over step patterning with more NBOS, continue but less Min- Mod UE WB on FWW during gait more continuous stable satepping less pain 5-6/10 this tx, only required 3 stop stand rests for recovery. PSYCHOLOGICAL ASSISTANT is ok to return home with to assist him when medically cleared. Goals Bed Mobility Goal Standby Assistance Transfer Goal Standby Assistance,Front Wheeled Walker,Four Wheeled Walker Gait Goal Standby Assistance,Front Wheel Walker,Four Wheel Walker Gait Distance 150 Other Goals up/down 2 steps L rail ascending SBA, ambulation w/ 4WW. (Pt has FWW if not safe w / 4WW but prefers 4WW) Days to Meet Goals 10 Frequency of Treatment Frequency Of Treatment Twice a Day Treatment Plan Physical Therapy Treatment Plan Bed Mobility Training,Transfer Training,Gait Training, Therapeutic Exercise,Balance Retraining,Post Op Education, Discharge Planning,Hot or Cold Pack,Neuromuscular Re-ed, Coordination Retraining,Manual Therapy Other Recommendations and Next Treatment Gait 4WW, Focus Precautions Lumbar Precautions Log Roll,No Twisting,Limit Bending,Lifting Restriction of 10 lbs,Gait Belt above Incisional Area Recommendations To Nursing Amount of Assist Needed Standby Assistance Discharge Recommendations PT Discharge Recommendations Home with Assistance Equipment Needed for Home Before FWW if not safe with 4WW Discharge Transportation Needs at Discharge Private Vehicle
--- NOTE | 2021-04-12 15:48 | PC.NURSE ---
Discharge: Pt feels ready to d/c to home. Zamudio out, has voided once. Pt did not want to wait until he voided a second time to discharge. Pain level is still high but pt thinks it's improved with the increase in oxycontin and dilaudid and valium. He also reported having the meds scheduled helped. Is tolerating diet w/out problems. Dressing to low back was saturated today and required changing. Pt has more bruising to the low back area as well. MD Nix notified rt incision still has some weeping from mid incision and the bruising. Pt and spouse are to change the dressings as needed. Rx has been esent. Given discharg instructions. Packet reviewed. Pt does follow his lami precautions. Has been cleared by PT. Questions answered, pt d/c home via auto w/SO.
== END 2021-04-12 12:00 | disposition home or self-care (01) ==
LOC: OR 10:55 → AC 10:55
PROVIDERS: Admitting Provider Orthopaedic Surgery Orthopaedic Surgery of the Spine; Referring Provider Orthopaedic Surgery Orthopaedic Surgery of the Spine; Visit Provider Orthopaedic Surgery Orthopaedic Surgery of the Spine
PROC: (CPT 22842; principal; 2021-04-09 12:15)
DX: T84.216A Breakdown (mechanical) of internal fixation device of vertebrae, initial encounter (principal); M48.061 Spinal stenosis, lumbar region without neurogenic claudication; M47.27 Other spondylosis with radiculopathy, lumbosacral region; M43.16 Spondylolisthesis, lumbar region; Z98.1 Arthrodesis status
CPT/HCPCS: 22842; 22614; 20939; 63005; 22612; 22630; 22850; 36415; 72100; 76000; 82962; 85014; 85018; 97116; 97162; 97530; 97535; C1776; G0378; C9290; J0171; J0330; J0690; J1100; J1170; J2060; J2250; J2405; J2704; J3010